=== PATIENT | female | born 1960 | race Caucasian/White ===

== ENCOUNTER 2016-08-08 15:13 | Emergency (ER) | payer OTHER ==
[2016-08-08] MEDS ORDERED: LORazepam 2 MG/ML MDV IM ONE (15:17)
[2016-08-08] MEDS ORDERED: LORazepam 2 MG/ML MDV ONE (15:18)
[2016-08-08] MEDS ORDERED: Midazolam 1 MG/ML 5 ML SDV ONE (15:41)
[2016-08-08] MEDS ORDERED: levETIRAcetam 2,000 MG in Sodium Chloride 0.9% 100 ML IV ONE ×2 (15:42→16:00)
[2016-08-08] MEDS ORDERED: Midazolam 1 MG/ML 5 ML SDV IVPUSH ONE (15:54)
[2016-08-08] MEDS ORDERED: LORazepam 2 MG/ML MDV IVPUSH ONE (15:55)
[2016-08-08 15:57] VITALS: BP 86/59
--- NOTE | 2016-08-08 16:00 | EDM.PDOC ---
ED HPI NEURO - General Chief Complaint: Neuro Symptoms/Deficits Stated Complaint: MEDICAL [facility] Time Seen by Provider: 08/08/16 15:30 Source: Reports: Patient, EMS, Family History Limitations: Reports: Altered mental status - History of Present Illness INITIAL COMMENTS - FREE TEXT/NARRATIVE: 55-year-old female was in her normal state of health 45 minutes ago when she suddenly slumped at the table and had difficulty communicating. She seemed to be frothing at the mouth but did not show seizure activity. There was no complete loss of consciousness. EMS was called and arrived very rapidly, they found the patient on the floor and unable to move her left side. She was speaking and was understandable, she seemed to have some left-sided facial drooping. Her vitals were stable. She was not febrile, her O2 saturations were in the 90s. She was in a sinus tachycardia. Rapid transfer to the emergency room was initiated. She showed no tendency towards inattention to one side or the other, before her symptoms worsen she commented to her family that her left arm was tingling or numb. Location (Neuro Complaint): Reports: face, upper extremity, left, lower extremity, left Quality (Neuro Complaint): Reports: tingling, weakness Severity: moderate - Related Data Allergies/ADRs: Allergies Allergy/AdvReac Type Severity Reaction Status Date / Time No Known Allergies Allergy Verified 08/08/16 15:36 Home Meds: Home Meds DULoxetine [Cymbalta] 1 tab PO DAILY 08/08/16 [History] DULoxetine [Cymbalta] 1 tab PO DAILY 08/08/16 [History] Naltrexone 0.25 tab PO DAILY 08/08/16 [History] Nitrofurantoin Monohyd/M-Cryst [Macrobid 100 mg Capsule] 1 tab PO BID 08/08/16 [ History] RABEprazole Sodium [Aciphex] 1 tab PO DAILY 08/08/16 [History] buPROPion [Wellbutrin] 1 tab PO BID 08/08/16 [History] Past Medical History Cardiovascular History: Reports: High cholesterol Gastrointestinal History: Reports: Chronic diarrhea Genitourinary History: Reports: Urinary incontinence 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 eye surgery as a child GI Surgical History: Reports: Cholecystectomy Female Surgical History: Reports: Hysterectomy ED ROS GENERAL - Review of Systems Review Of Systems: Unable To Obtain ED EXAM, NEURO - Physical Exam Exam: See Below Exam Limited By: Physical impairment General Appearance: alert, anxious, other (Patient was anxious and somewhat agitated and uncooperative, obviously not moving her left side) Eye Exam: bilateral eye: EOMI (Interestingly she tracked well both to the left and right, no disconjugate gaze) Respiratory/Chest: no respiratory distress, lungs clear Cardiovascular: regular rate, rhythm, tachycardia. No: extra beats GI/Abdominal: soft Neurological: no response to pain (On the left arm or leg), other (She had no active response on the left arm or leg to either tactile stimulation or verbal request. At times with agitation she seemed to have some nonpurposeful movement of the arm and leg) Psychiatric: anxious Skin Exam: Warm, Dry Course - Vital Signs Last Recorded V/S: Last Vital Signs Temp 94.3 F L 08/08/16 15:30 Pulse 109 H 08/08/16 15:44 Resp 22 H 08/08/16 15:44 BP 86/59 L 08/08/16 15:44 Pulse Ox 96 08/08/16 15:44 - Orders/Labs/Meds Orders: Active Orders 24 hr Category Date Time Status Head wo Cont [CT] Stat Exams 08/08/16 15:14 Taken Labs: Laboratory Tests 08/08/16 08/08/16 08/08/16 Range/Units 15:31 15:31 15:31 WBC 18.6 H (4.5-11.0) K/uL RBC 4.59 (3.30-5.50) M/uL Hgb 14.4 (12.0-15.0) g/dL Hct 43.8 (36.0-48.0) % MCV 95 (80-98) fL MCH 31 (27-31) pg MCHC 33 (32-36) % Plt Count 341 (150-400) K/uL Neut % (Auto) 59 (36-66) % Lymph % (Auto) 36 (24-44) % [place] % (Auto) 4 (2-6) % Eos % (Auto) 1 L (2-4) % Baso % (Auto) 0 (0-1) % PT 10.5 (9.5-12.0) sec INR 0.99 (0.80-1.20) Sodium 140 (140-148) mmol/L Potassium 4.4 (3.6-5.2) mmol/L Chloride 102 (100-108) mmol/L Carbon Dioxide 8 L (21-32) mmol/L Anion Gap 34.4 H (5.0-14.0) mmol/L BUN 8 (7-18) mg/dL Creatinine 1.5 H (0.6-1.0) mg/dL Est Cr Clr Drug Dosing 38.13 mL/min Estimated GFR (MDRD) 36 L (>60) Glucose 243 H (74-106) mg/dL Calcium 8.6 (8.5-10.1) mg/dL Total Bilirubin 0.4 (0.2-1.0) mg/dL AST 38 H (15-37) U/L ALT 43 (12-78) U/L Alkaline Phosphatase 117 H (46-116) U/L Total Protein 7.8 (6.4-8.2) g/dL Albumin 3.7 (3.4-5.0) g/dL Globulin 4.1 H (2.3-3.5) g/dL Albumin/Globulin Ratio 0.9 L (1.2-2.2) Meds: Medications Discontinued Medications Generic Name Dose Route Start Last Admin Trade Name Nathanielq PRN Reason Stop Dose Admin Levetiracetam 2,000 mg/ Sodium 120 mls @ 400 mls/hr 08/08/16 16:00 08/08/16 15:54 Chloride IV 08/08/16 16:17 400 mls/hr ONETIME ONE Administration Lorazepam Confirm 08/08/16 15:18 08/08/16 15:59 Ativan Administered 08/08/16 15:19 Not Given Dose 2 mg .ROUTE .STK-MED ONE Lorazepam 1 mg 08/08/16 15:55 08/08/16 15:20 Ativan IVPUSH 08/08/16 15:56 1 mg ONETIME ONE Administration Midazolam HCl Confirm 08/08/16 15:41 08/08/16 15:59 Versed 1 Mg/Ml Administered 08/08/16 15:42 Not Given Dose 5 mg .ROUTE .STK-MED ONE Midazolam HCl 4 mg 08/08/16 15:54 08/08/16 15:40 Versed 1 Mg/Ml IVPUSH 08/08/16 15:55 4 mg ONETIME ONE Administration - Re-Assessments/Exams Free Text/Narrative Re-Assessment/Exam: 08/08/16 16:[address] without contrast was obtained which revealed a fairly large space-occupying lesion of the right parietal area, 4-5 cm. Acuity was unknown, no significant edema was present and no hemorrhage seen. Consultation was made with neurology in [place] and the patient was given 2000 mg of Keppra IV to protect from seizure activity and there is a possibility that a seizure was what initiated her symptoms. She was also given 4 mg of Versed IV for her anxiety and agitation. Patient calmed down nicely prior to transport, she was airlifted to [facility], Dr. Melissa accepted. Departure - Departure Time of Disposition: 16:28 Disposition: DC/Tfer to Other 70 Condition: fair Clinical Impression: Cerebral mass Cerebrovascular accident (CVA) Qualifiers: CVA mechanism: unspecified Qualified Code(s): I63.9 - Cerebral infarction, unspecified Referrals: Claudia March PA [Primary Care Provider] - Forms: ED Department Discharge Care Plan Goals: Patient was urgently transported by air to [facility] for further neurologic evaluation. - My Orders Last 24 Hours: My Active Orders 08/08/16 15:14 Head wo Cont [CT] Stat - Assessment/Plan Last 24 Hours: My Active Orders 08/08/16 15:14 Head wo Cont [CT] Stat
== END 2016-08-08 16:05 | disposition other institution (70) ==
LOC: JP.ED 15:13
DX: I63.9 Cerebral infarction, unspecified (principal); G93.9 Disorder of brain, unspecified; E78.00 Pure hypercholesterolemia, unspecified; F41.9 Anxiety disorder, unspecified; F32.9 Major depressive disorder, single episode, unspecified; Z90.49 Acquired absence of other specified parts of digestive tract; Z90.710 Acquired absence of both cervix and uterus
CPT/HCPCS: 36415; 70450; 80053; 85025; 85610; 96374; 96375; 99285; J1953; J2060; J2250; J7030

== ENCOUNTER 2016-08-22 00:12 | Emergency (ER) | payer OTHER ==
[2016-08-22] MEDS ORDERED: Sodium Chloride 0.9% 10 ML Syringe FLUSH PRN (01:01)
[2016-08-22] MEDS ORDERED: fentaNYL 100 MCG/2 ML SDV IVPUSH ONE ×2 (01:17→02:13)
--- NOTE | 2016-08-22 01:24 | EDM.PDOC ---
ED HPI Trauma - General Chief Complaint: Lower Extremity Injury/Pain Stated Complaint: LOWER LEFT LEG PAIN Time Seen by Provider: 08/22/16 00:53 Source: Reports: Patient, Old records, RN notes reviewed, Other (Friend, who has power of civil rights attorney when patient is incapacitated) History Limitations: Reports: No limitations - History of Present Illness INITIAL COMMENTS - FREE TEXT/NARRATIVE: Tried in by friend Chief complaint Left leg pain HPI 55-year-old female was discharged from [place] this afternoon, had been home barely 2 hours when she had sudden onset of pain in the left lower leg, particularly in the area of the xiao but also involving the thigh and calf. He felt like she had a can the bones it hurts to stand and walk and her to palpate her push on the area. A little better at rest. No history of injury No history of similar pain. August 08 she presented to emergency room with sudden onset of syncopal episode at home associated with some abnormal movements. In addition there was altered mental behavior. Arrived in ED by ambulance. Evaluation included a CT of her head which showed a right-sided parietal fortify centimeters in diameter and around. She is treated with intravenous Keppra for possible seizure and transferred to [place] by air. At [place] she was restless and agitated and in particular she kept pulling off her oxygen and consequently ended up getting intubated and sedated. Which ICU she was intubated sedated and remained that way until discharge. As part of her evaluation she underwent ultrasound of her heart which showed significant decrease in ejection fraction. Apparently she underwent angiogram, uncertain which side was used for access, but no significant blockages were found. The external defibrillator was placed on her but she still has. In discussion with the neurosurgeon, because of the heart wrist, it was felt that she was too high risk for cerebral biopsy at this point. MRI did not reveal the exact nature of the lesion although there was evidence of small ischemic strokes, initially just the right side but some spots also showed on the left side subsequent MRI. Biopsy of the cerebral masses deferred until her cardiac function improves No further seizure-like activity has been observed Allergies/ADRs: Allergies No Known Allergies Allergy (Verified 08/08/16 15:36) Home Medications: Ambulatory Orders DULoxetine [Cymbalta] 1 tab PO DAILY 08/08/16 [Confirmed 08/22/16] DULoxetine [Cymbalta] 1 tab PO DAILY 08/08/16 [Confirmed 08/22/16] RABEprazole Sodium [Aciphex] 1 tab PO DAILY 08/08/16 [Confirmed 08/22/16] buPROPion [Wellbutrin] 1 tab PO BID 08/08/16 [Confirmed 08/22/16] Aspirin 81 mg PO DAILY 08/22/16 [Confirmed 08/22/16] Carvedilol 3.125 mg PO BID 08/22/16 [Confirmed 08/22/16] Cyanocobalamin (Vitamin B-12) [B-12] 1,000 mcg PO DAILY 08/22/16 [Confirmed ] Furosemide 40 mg PO BID 08/22/16 [Confirmed 08/22/16] Magnesium Oxide [Magnesium] 400 mg PO DAILY 08/22/16 [Confirmed 08/22/16] Montelukast [Singulair] 10 mg PO BEDTIME 08/22/16 [Confirmed 08/22/16] Multivitamin [Multivitamins] 1 tab PO DAILY 08/22/16 [Confirmed 08/22/16] Potassium 20 meq PO DAILY 08/22/16 [Confirmed 08/22/16] Vitamin B Complex [B Complex] 1 tab PO DAILY 08/22/16 [Confirmed 08/22/16] atorvaSTATin [Lipitor] 40 mg PO DAILY 08/22/16 [Confirmed 08/22/16] levETIRAcetam [Keppra] 500 mg PO BID 08/22/16 [Confirmed 08/22/16] Past Medical History Cardiovascular History: Reports: High cholesterol Gastrointestinal History: Reports: Chronic diarrhea Genitourinary History: Reports: Urinary incontinence 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 eye surgery as a child Cardiovascular Surgical History: Reports: Other (see below) Other Cardiovascular Surgeries/Procedures: cardiac life vestand echo memory were placed 08-21-16 GI Surgical History: Reports: Cholecystectomy Female Surgical History: Reports: Hysterectomy Social & Family History - Tobacco Use Smoking Status *Q: Former Smoker - Caffeine Use Caffeine Use: Reports: Coffee - Recreational Drug Use Recreational Drug Use: No Review of Systems - Review of Systems Review Of Systems: See Below Constitutional: Denies: chills, diaphoresis, fever Eyes: Reports: no symptoms Ears: Reports: no symptoms Nose: Reports: no symptoms Mouth/Throat: Reports: no symptoms Respiratory: Reports: No Symptoms Cardiovascular: Reports: no symptoms GI/Abdominal: Reports: No symptoms Genitourinary: Reports: no symptoms Musculoskeletal: Reports: leg pain Skin: Reports: no symptoms Trauma Exam - Physical Exam Exam: See Below Exam Limited By: No limitations General Appearance: Reports: alert, anxious, moderate distress (And restlessness ), other (Mild tachycardia rate 113 otherwise vital signs normal, color normal, appears healthy) Head: Reports: atraumatic, normocephalic Eyes: bilateral eye: conjunctival injection Ears: Reports: normal external exam, hearing grossly normal Nose: Reports: normal inspection, normal mucousa Throat/Mouth: Reports: Normal inspection, Normal voice Neck: Reports: non-tender, full range of motion, normal inspection Respiratory Exam: Reports: no respiratory distress, lungs clear, normal breath sounds, no accessory muscle use, chest non-tender Cardiovascular: Reports: normal peripheral pulses, regular rate, rhythm, no edema, no murmur GI/Abdominal: Reports: normal bowel sounds, soft, non tender, no organomegaly, no distention, no abnormal bruit, no mass Back: Reports: normal inspection, non-tender Extremities: Reports: no evidence of injury, other (Mottled and bluish discoloration of the whole of the left lower extremity, but pulses are equal both legs, capillary refill normal, no joint swelling or effusion evident; normal temperature both legs) Neurologic: Reports: no motor/sensory deficits, normal mood/affect Skin: Reports: Mottled (Left leg otherwise body entirely normal) - Samuel Coma Score Best Eye Response (Samuel): (4) open spontaneously Best Verbal Response (Samuel): (5) oriented Best Motor Response ([place]): (6) obeys commands Course - Vital Signs Last Recorded V/S: Last Vital Signs Temp 36.6 C 08/22/16 03:04 Pulse 94 08/22/16 03:04 Resp 16 08/22/16 03:04 BP 96/54 L 08/22/16 03:04 Pulse Ox 97 08/22/16 03:04 - Orders/Labs/Meds Orders: Active Orders 24 hr Category Date Time Status VL Duplex Lwr Ext Veins Ltd Lt [US] Stat Exams 08/22/16 01:01 Taken Heparin Sodium/D5W [Heparin 25,000 Units in D5W 500 ML] Med 08/22/16 02:45 Active 25,000 units in 500 ml IV TITRATE Sodium Chloride 0.9% [Saline Flush] Med 08/22/16 01:01 Active 10 ml FLUSH ASDIRECTED PRN Saline Lock Insert [OM.PC] Stat Oth 08/22/16 01:01 Ordered Medication Orders Heparin Sodium/Dextrose (Heparin 25,000 Units In D5w 500 Ml) 25,000 units in 500 mls @ 30.456 mls/hr IV TITRATE ELLA PRN Reason: 18 UNITS/KG/HR Last Admin: 08/22/16 03:01 Dose: 18 units/kg/hr, 30.456 mls/hr Sodium Chloride (Saline Flush) 10 ml FLUSH ASDIRECTED PRN PRN Reason: Keep Vein Open Last Admin: 08/22/16 01:22 Dose: 10 ml Labs: Laboratory Tests 08/22/16 08/22/16 08/22/16 Range/Units 01:01 01:01 01:01 WBC 15.8 H (4.5-11.0) K/uL RBC 3.76 (3.30-5.50) M/uL Hgb 11.6 L D (12.0-15.0) g/dL Hct 35.0 L (36.0-48.0) % MCV 93 (80-98) fL MCH 31 (27-31) pg MCHC 33 (32-36) % Plt Count 399 (150-400) K/uL PT 11.6 (9.5-12.0) sec INR 1.09 (0.80-1.20) Sodium 139 L (140-148) mmol/L Potassium 4.0 (3.6-5.2) mmol/L Chloride 101 (100-108) mmol/L Carbon Dioxide 24 D (21-32) mmol/L Anion Gap 18.0 H (5.0-14.0) mmol/L BUN 8 (7-18) mg/dL Creatinine 0.9 (0.6-1.0) mg/dL Est Cr Clr Drug Dosing 63.55 mL/min Estimated GFR (MDRD) > 60 (>60) Glucose 122 H (74-106) mg/dL Calcium 8.9 (8.5-10.1) mg/dL Meds: Medications Generic Name Dose Route Start Last Admin Trade Name Freq PRN Reason Stop Dose Admin Heparin Sodium/Dextrose 25,000 units in 500 mls @ 30.456 mls/hr 08/22/16 02: 45 08/22/16 03:01 Heparin 25,000 Units In D5w 500 Ml IV 18 units/kg/hr TITRATE ELLA 30.456 mls/hr 18 UNITS/KG/HR Administration Sodium Chloride 10 ml 08/22/16 01:01 08/22/16 01:22 Saline Flush FLUSH 10 ml ASDIRECTED PRN Administration Keep Vein Open Discontinued Medications Generic Name Dose Route Start Last Admin Trade Name Freq PRN Reason Stop Dose Admin Fentanyl 50 mcg 08/22/16 01:17 08/22/16 01:22 Sublimaze IVPUSH 08/22/16 01:18 50 mcg ONETIME ONE Administration Fentanyl 100 mcg 08/22/16 02:13 08/22/16 02:21 Sublimaze IVPUSH 08/22/16 02:14 100 mcg ONETIME ONE Administration Heparin Sodium (Porcine) 5,000 units 08/22/16 02:27 08/22/16 02:57 Heparin Sodium IVPUSH 08/22/16 02:28 5,000 units ONETIME ONE Administration - Re-Assessments/Exams Free Text/Narrative Re-Assessment/Exam: 08/22/16 01:27 55-year-old female with recent angiogram ischemic stroke, right parietal mass and possible arrhythmia Presents with new onset left calf and leg pain. Altered appearance to the left leg Does not appear to be an arterial problem Fentanyl 50 mcg IV for pain Doppler left lower extremity 08/22/16 01:45 08/22/16 02:34 Doppler ultrasound shows extensive DVT left leg from the popliteal fossa up to the femoral to the junction with the greater saphenous Fentanyl 100 mcg IV given with good relief of pain Heparin if indicated, and symptoms suggestive of pulmonary embolus at this point However with and brain mass, there is risk of bleeding. I discussed with hospitalist tooth cutter pinion at [facility], do not have it, recommended shared decision-making the patient. Discussed with hospitalist provider here, however felt that she might need ICU or perhaps referral to a center where vascular surgery is available. Heparin will be bolused with 5000 units followed by units per hour, intravenously 08/22/16 03:22 Noe in [place] is on divert [place] Joni has vascular surgery but recommend lysis prior to thrombectomy , and the hospitalists overwhelmed at present time and cannot accept admission currently Dr. June at [facility] is graciously accepted the patient in transfer Departure - Departure Time of Disposition: 03:21 Disposition: DC/Tfer to Acute Hospital 02 Condition: fair Clinical Impression: Brain mass, Seizure disorder Deep vein thrombosis (DVT) of proximal vein of left lower extremity Qualifiers: Chronicity: acute Qualified Code(s): I82.4Y2 - Acute embolism and thrombosis of unspecified deep veins of left proximal lower extremity Cardiomyopathy Qualifiers: Cardiomyopathy type: unspecified Qualified Code(s): I42.9 - Cardiomyopathy, unspecified - My Orders Last 24 Hours: My Active Orders 08/22/16 01:01 VL Duplex Lwr Ext Veins Ltd Lt [US] Stat Sodium Chloride 0.9% [Saline Flush] 10 ml FLUSH ASDIRECTED PRN Saline Lock Insert [OM.PC] Stat 08/22/16 02:45 Heparin Sodium/D5W [Heparin 25,000 Units in D5W 500 ML] 25,000 units in 500 ml IV TITRATE - Assessment/Plan Last 24 Hours: My Active Orders 08/22/16 01:01 VL Duplex Lwr Ext Veins Ltd Lt [US] Stat Sodium Chloride 0.9% [Saline Flush] 10 ml FLUSH ASDIRECTED PRN Saline Lock Insert [OM.PC] Stat 08/22/16 02:45 Heparin Sodium/D5W [Heparin 25,000 Units in D5W 500 ML] 25,000 units in 500 ml IV TITRATE
[2016-08-22] MEDS ORDERED: Heparin Sodium 5,000 Units/ML Vial IVPUSH ONE (02:27)
[2016-08-22] MEDS ORDERED: Heparin Sodium/D5W 25,000 UNITS/500 ML BAG IV SCH (02:45)
[2016-08-22 03:29] VITALS: BP 91/57
== END 2016-08-22 04:20 ==
LOC: JP.ED 00:12
DX: I82.4Y2 Acute embolism and thrombosis of unspecified deep veins of left proximal lower extremity (principal); G93.9 Disorder of brain, unspecified; G40.909 Epilepsy, unspecified, not intractable, without status epilepticus; E78.00 Pure hypercholesterolemia, unspecified; K52.9 Noninfective gastroenteritis and colitis, unspecified; R32 Unspecified urinary incontinence; M81.0 Age-related osteoporosis without current pathological fracture; M85.80 Other specified disorders of bone density and structure, unspecified site; F32.9 Major depressive disorder, single episode, unspecified; F41.9 Anxiety disorder, unspecified; F44.81 Dissociative identity disorder; Z87.891 Personal history of nicotine dependence
CPT/HCPCS: 36415; 80048; 85027; 85610; 93971; J1644; J3010; J7050; 96374; 96375; 96376; 99285-25

== ENCOUNTER 2016-09-01 10:10 | Emergency (ER) | payer OTHER ==
[2016-09-01 10:32] VITALS: BP 113/68
--- NOTE | 2016-09-01 11:13 | EDM.PDOC ---
ED HPI RENAL/ - General Chief Complaint: Genitourinary Problem Stated Complaint: UTI?? Time Seen by Provider: 09/01/16 11:08 Source: Reports: Patient History Limitations: Reports: No limitations - History of Present Illness INITIAL COMMENTS - FREE TEXT/NARRATIVE: Pt arrives with urinary frequency and burning which started in the last 2 days. Timing/Duration: Reports: Day(s):, Getting worse Location: Reports: other ( urinary frquency and burning. ) Worsens with: Reports: urinating Associated Symptoms: Reports: burning, dysuria, frequency, diarrhea - Related Data Allergies/ADRs: Allergies Allergy/AdvReac Type Severity Reaction Status Date / Time No Known Allergies Allergy Verified 09/01/16 10:32 Home Meds: Home Meds DULoxetine [Cymbalta] 1 tab PO DAILY 08/08/16 [History] RABEprazole Sodium [Aciphex] 1 tab PO DAILY 08/08/16 [History] buPROPion [Wellbutrin] 1 tab PO BID 08/08/16 [History] Aspirin 81 mg PO DAILY 08/22/16 [History] Carvedilol 3.125 mg PO BID 08/22/16 [History] Cyanocobalamin (Vitamin B-12) [B-12] 1,000 mcg PO DAILY 08/22/16 [History] Furosemide 40 mg PO BID 08/22/16 [History] Magnesium Oxide [Magnesium] 400 mg PO DAILY 08/22/16 [History] Montelukast [Singulair] 10 mg PO BEDTIME 08/22/16 [History] Multivitamin [Multivitamins] 1 tab PO DAILY 08/22/16 [History] Potassium 20 meq PO DAILY 08/22/16 [History] Vitamin B Complex [B Complex] 1 tab PO DAILY 08/22/16 [History] atorvaSTATin [Lipitor] 40 mg PO DAILY 08/22/16 [History] levETIRAcetam [Keppra] 500 mg PO BID 08/22/16 [History] Past Medical History Cardiovascular History: Reports: High cholesterol Gastrointestinal History: Reports: Chronic diarrhea Genitourinary History: Reports: Urinary incontinence, UTI, 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 eye surgery as a child Cardiovascular Surgical History: Reports: Other (see below) Other Cardiovascular Surgeries/Procedures: cardiac life vestand echo memory were placed 08-21-16 GI Surgical History: Reports: Cholecystectomy Female Surgical History: Reports: Hysterectomy Social & Family History - Tobacco Use Smoking Status *Q: Former Smoker Years of Tobacco use: 30 Packs/Tins Daily: 0.5 Used Tobacco, but Quit: Yes Month Tobacco Last Used: July Second Hand Smoke Exposure: No - Caffeine Use Caffeine Use: Reports: Coffee, Soda - Alcohol Use Days Per Week of Alcohol Use: 0 - Recreational Drug Use Recreational Drug Use: Yes Recreational Drug Type: Reports: Marijuana/Hashish Recreational Drug Use Frequency: Daily ED ROS GENERAL - Review of Systems Review Of Systems: See Below Constitutional: Reports: no symptoms HEENT: Reports: No symptoms Respiratory: Reports: No Symptoms Cardiovascular: Reports: No symptoms Endocrine: Reports: no symptoms GI/Abdominal: Reports: Other ( Pt has chronic diarrhea. ) : Reports: dysuria, frequency Musculoskeletal: Reports: no symptoms Skin: Reports: no symptoms ED EXAM, RENAL/ - Physical Exam Exam: See Below Text/Narrative:: Pt has a history of a brain Mass ad she is beiong followed at [place]. She will probably have surgery in the 10 days. She not has urinary burning and frequency. She also has a rash on her romi area. Exam Limited By: No limitations General Appearance: alert, anxious Ears: normal TMs Nose: normal inspection Throat/Mouth: Normal inspection Head: atraumatic Neck: normal inspection Respiratory/Chest: no respiratory distress Cardiovascular: regular rate, rhythm GI/Abdominal: soft, non tender (Female) Exam: Other (pt has a rash on the romi area which looks like a yeast rash. ) Rectal (Female) Exam: Deferred Back Exam: normal inspection Extremities: normal inspection Course - Vital Signs Last Recorded V/S: Last Vital Signs Temp 34.6 C L 09/01/16 10:58 Pulse 96 09/01/16 10:58 Resp 16 09/01/16 10:58 BP 113/68 09/01/16 10:58 Pulse Ox 98 09/01/16 10:58 - Orders/Labs/Meds Orders: Active Orders 24 hr Category Date Time Status CULTURE URINE [RM] Stat Lab 09/01/16 10:53 Uncollected Labs: Laboratory Tests 09/01/16 Range/Units 10:46 Urine Color Yellow Urine Appearance Cloudy Urine pH 5.0 (4.5-8.0) Ur Specific [place] 1.025 (1.008-1.030) Urine Protein 100 H (NEGATIVE) mg/dL Urine Glucose (UA) Normal (NEGATIVE) mg/dL Urine Ketones Negative (NEGATIVE) mg/dL Urine Occult Blood Moderate (NEGATIVE) Urine Nitrite Negative (NEGATIVE) Urine Bilirubin Small (NEGATIVE) Urine Urobilinogen >=12 H (NORMAL) mg/dL Ur Leukocyte Esterase Large (NEGATIVE) Urine RBC 0-5 (0-5) Urine WBC 20-30 H (0-5) Ur Epithelial Cells Few Urine Bacteria Few Urine Mucus Not seen Urine Other See note Departure - Departure Time of Disposition: 11:13 Disposition: Home, Self-Care 01 Condition: fair Clinical Impression: UTI (urinary tract infection) Referrals: Claudia March PA [Primary Care Provider] - Forms: ED Department Discharge Care Plan Goals: push fluids, myclog cream to the romi area, cipro 500mg bid. - My Orders Last 24 Hours: My Active Orders 09/01/16 10:53 CULTURE URINE [RM] Stat - Assessment/Plan Last 24 Hours: My Active Orders 09/01/16 10:53 CULTURE URINE [RM] Stat
== END 2016-09-01 11:24 | disposition home or self-care (01) ==
LOC: JP.ED 10:10
DX: N39.0 Urinary tract infection, site not specified (principal); E78.00 Pure hypercholesterolemia, unspecified; F41.9 Anxiety disorder, unspecified; F32.9 Major depressive disorder, single episode, unspecified; Z79.899 Other long term (current) drug therapy; Z90.49 Acquired absence of other specified parts of digestive tract; Z90.710 Acquired absence of both cervix and uterus; Z87.891 Personal history of nicotine dependence
CPT/HCPCS: 81001; 87086; 99284

== ENCOUNTER 2016-10-29 15:45 | Emergency (ER) | payer OTHER ==
[2016-10-29 15:58] VITALS: BP 123/77
--- NOTE | 2016-10-29 17:06 | EDM.PDOC ---
[id number]: [facility] CALLED FOR INSTRUCTIONS Time Seen by Provider: 10/29/16 16:30 Source of Information: Reports: Patient, Family History Limitations: Reports: No Limitations - History of Present Illness INITIAL COMMENTS - FREE TEXT/NARRATIVE: 56-year-old female who was recently diagnosed with a glioblastoma and had cranial surgery who has been struggling with low platelets. She has fallen several times hitting her head over the past several weeks, and when she talked to her providers at [facility] today they were concerned with her low platelet count, recent surgery and active intracranial disease a head CT should be done to rule out any subtle hemorrhage. The patient herself feels baseline, very talkative, continues to have left-sided numbness but no increased weakness or a aphasia or dysarthria. No significant visual change. Her platelet count this morning was 16,000, if her CT shows no acute findings they will set her up for a platelet transfusion tomorrow. Quality: Reports: Dull (Dull intermittent headache) Severity: Mild Associated Symptoms: Denies: Fever/Chills, Nausea/Vomiting, Shortness of Breath Headache Pain Score (Numeric/FACES): 8 - Related Data Allergies Allergy/AdvReac Type Severity Reaction Status Date / Time No Known Allergies Allergy Verified 09/01/16 10:32 Home Meds: Home Meds DULoxetine [Cymbalta] 1 tab PO DAILY 08/08/16 [History] RABEprazole Sodium [Aciphex] 1 tab PO DAILY 08/08/16 [History] buPROPion [Wellbutrin] 1 tab PO BID 08/08/16 [History] Aspirin 81 mg PO DAILY 08/22/16 [History] Carvedilol 3.125 mg PO BID 08/22/16 [History] Cyanocobalamin (Vitamin B-12) [B-12] 1,000 mcg PO DAILY 08/22/16 [History] Furosemide 40 mg PO BID 08/22/16 [History] Magnesium Oxide [Magnesium] 400 mg PO DAILY 08/22/16 [History] Montelukast [Singulair] 10 mg PO BEDTIME 08/22/16 [History] Multivitamin [Multivitamins] 1 tab PO DAILY 08/22/16 [History] Potassium 20 meq PO DAILY 08/22/16 [History] Vitamin B Complex [B Complex] 1 tab PO DAILY 08/22/16 [History] atorvaSTATin [Lipitor] 40 mg PO DAILY 08/22/16 [History] levETIRAcetam [Keppra] 500 mg PO BID 08/22/16 [History] DULoxetine [Cymbalta] 30 mg PO DAILY 10/29/16 [History] Diphenoxylate HCl/Atropine [Lomotil] 1 tab PO QID PRN 10/29/16 [History] diphenhydrAMINE [Benadryl] 50 mg PO ASDIRECTED 10/29/16 [History] Past Medical History HEENT History: Reports: Sinusitis Cardiovascular History: Reports: Blood Clots/VTE/DVT, High Cholesterol Respiratory History: Reports: Other (See Below) Other Respiratory History: SIRS Gastrointestinal History: Reports: Chronic Diarrhea, GERD, Other (See Below) Other Gastrointestinal History: lymphocytic colitis Genitourinary History: Reports: Urinary Incontinence, UTI, Recurrent [employer]IST History: Reports: , Other (See Below) Other OB/BYN History: chronic dysplagia Musculoskeletal History: Reports: Fibromyalgia, Osteoporosis, Other (See Below) Other Musculoskeletal History: right hip dislocation Neurological History: Reports: CVA, Headaches, Chronic, Migraines, Neuropathy, Peripheral, Seizure, Other (See Below) Other Neuro History: gliomas Psychiatric History: Reports: Anxiety, Depression, Psych Hospitalization(s), PTSD, Suicide Attempt Other Psychiatric History: multiple personality disorder Hematologic History: Reports: Blood Transfusion(s), Other (See Below) Other Hematologic History: platelet transfusion Immunologic History: Reports: Immunosuppression Oncologic (Cancer) History: Reports: Other (See Below) Other Oncologic History: glioblastoma Dermatologic History: Reports: Other (See Below) Other Dermatologic History: chronic puritis - Infectious Disease History Infectious Disease History: Reports: Chicken Pox, Mumps - Past Surgical History HEENT Surgical History: Reports: Other (See Below) Other HEENT Surgeries/Procedures: cyst removal on neck, hyoid bone removal, amblyopia Cardiovascular Surgical History: Reports: Other (See Below) Other Cardiovascular Surgeries/Procedures: loop monitor implant GI Surgical History: Reports: Cholecystectomy Female Surgical History: Reports: Hysterectomy Neurological Surgical History: Reports: Other (See Below) Other Neurological Surgeries/Procedures: craniotomy Musculoskeletal Surgical History: Reports: Other (See Below) Other Musculoskeletal Surgeries/Procedures:: crainiotomy Social & Family History - Tobacco Use Smoking Status *Q: Current Every Day Smoker Years of Tobacco use: 30 Packs/Tins Daily: 0.3 Used Tobacco, but Quit: Yes Month Tobacco Last Used: July Second Hand Smoke Exposure: No - Caffeine Use Caffeine Use: Reports: Coffee - Alcohol Use Days Per Week of Alcohol Use: 0 - Recreational Drug Use Recreational Drug Use: No Recreational Drug Type: Reports: Marijuana/Hashish Recreational Drug Use Frequency: Daily ED ROS GENERAL - Review of Systems Review Of Systems: See Below Constitutional: Denies: Fever, Chills Respiratory: Denies: Shortness of Breath Cardiovascular: Denies: Chest Pain GI/Abdominal: Denies: Abdominal Pain, Nausea, Vomiting Neurological: Reports: Difficulty Walking, Other (Left-sided paresthesias, numbness, weakness) ED EXAM, GENERAL - Physical Exam Exam: See Below Exam Limited By: No Limitations General Appearance: Alert, No Apparent Distress Eye Exam: Bilateral Eye: EOMI Respiratory/Chest: No Respiratory Distress, Lungs Clear Neurological: Alert Skin Exam: Warm, Dry, Other (No widespread bruising seen) Course - Vital Signs Last Recorded V/S: Last Vital Signs Temp 96.3 F 10/29/16 16:14 Pulse 95 10/29/16 16:14 Resp 16 10/29/16 16:14 BP 123/77 10/29/16 16:14 Pulse Ox 97 10/29/16 16:14 - Orders/Labs/Meds Orders: Active Orders 24 hr Category Date Time Status Head wo Cont [CT] Stat Exams 10/29/16 16:54 Taken - Re-Assessments/Exams Free Text/Narrative Re-Assessment/Exam: 10/29/16 17:[address] without contrast was obtained. 10/29/16 17:47 CT scan showed no acute hemorrhagic changes. She does have increasing edema and mass effect, however when I discussed with the patient she said they "know that" and are watching it. Apparently it has doubled in size in the last 3 weeks. Her care providers at [facility] were informed of the findings and they will order the platelets for tomorrow. She will return anytime sooner if worsening or concerns. Departure - Departure Time of Disposition: 18:34 Disposition: Home, Self-Care 01 Condition: fair Clinical Impression: Brain mass, Glioblastoma of cerebellum - Discharge Information Instructions: Glioblastoma, How to Use a Wheelchair Referrals: Claudia March PA [Primary Care Provider] - Forms: ED Department Discharge Care Plan Goals: Return tomorrow for platelet infusion as ordered by your providers at [facility]. You can return anytime sooner if worsening or concerns. - My Orders Last 24 Hours: My Active Orders 10/29/16 16:54 Head wo Cont [CT] Stat - Assessment/Plan Last 24 Hours: My Active Orders 10/29/16 16:54 Head wo Cont [CT] Stat
== END 2016-10-29 18:09 | disposition home or self-care (01) ==
LOC: JP.ED 15:45
DX: G93.9 Disorder of brain, unspecified (principal); C71.6 Malignant neoplasm of cerebellum; E78.00 Pure hypercholesterolemia, unspecified; K21.9 Gastro-esophageal reflux disease without esophagitis; F41.9 Anxiety disorder, unspecified; F32.9 Major depressive disorder, single episode, unspecified; F17.210 Nicotine dependence, cigarettes, uncomplicated; Z79.82 Long term (current) use of aspirin; Z79.899 Other long term (current) drug therapy; Z86.718 Personal history of other venous thrombosis and embolism; Z86.73 Personal history of transient ischemic attack (TIA), and cerebral infarction without residual deficits; Z90.49 Acquired absence of other specified parts of digestive tract; Z90.710 Acquired absence of both cervix and uterus; Z98.890 Other specified postprocedural states
CPT/HCPCS: 70450; 99284-25

== ENCOUNTER 2016-11-06 11:27 | Emergency (ER) | payer OTHER ==
[2016-11-06 11:41] VITALS: BP 106/76
--- NOTE | 2016-11-06 11:57 | EDM.PDOC ---
ED HPI GENERAL MEDICAL PROBLEM - General Chief Complaint: Lower Extremity Injury/Pain Stated Complaint: ISSUES W/LT LEG/BLOOD CLOTS? Time Seen by Provider: 11/06/16 11:45 Source of Information: Reports: Patient, Family, Old Records History Limitations: Reports: No Limitations - History of Present Illness INITIAL COMMENTS - FREE TEXT/NARRATIVE: 56 yo female was scheduled to come in for an outpatient infusion of platelets today. [place] a lump at the back of her left calf and was concerned this may be a DVT so came to the ER to be checked out. No SOB or pleuritic chest pain. 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: Other (see below) (none) - Related Data Allergies Allergy/AdvReac Type Severity Reaction Status Date / Time morphine Allergy Rash Verified 10/31/16 14:22 Home Meds: Home Meds DULoxetine [Cymbalta] 1 tab PO DAILY 08/08/16 [History] RABEprazole Sodium [Aciphex] 1 tab PO DAILY 08/08/16 [History] buPROPion [Wellbutrin] 1 tab PO BID 08/08/16 [History] Aspirin 81 mg PO DAILY 08/22/16 [History] Carvedilol 3.125 mg PO BID 08/22/16 [History] Cyanocobalamin (Vitamin B-12) [B-12] 1,000 mcg PO DAILY 08/22/16 [History] Montelukast [Singulair] 10 mg PO BEDTIME 08/22/16 [History] Multivitamin [Multivitamins] 1 tab PO DAILY 08/22/16 [History] Potassium 20 meq PO DAILY 08/22/16 [History] Vitamin B Complex [B Complex] 1 tab PO DAILY 08/22/16 [History] atorvaSTATin [Lipitor] 40 mg PO DAILY 08/22/16 [History] levETIRAcetam [Keppra] 1,000 mg PO BID 08/22/16 [History] DULoxetine [Cymbalta] 30 mg PO DAILY 10/29/16 [History] diphenhydrAMINE [Benadryl] 50 mg PO ASDIRECTED 10/29/16 [History] Past Medical History HEENT History: Reports: Sinusitis Cardiovascular History: Reports: Blood Clots/VTE/DVT, High Cholesterol Respiratory History: Reports: Other (See Below) Other Respiratory History: SIRS Gastrointestinal History: Reports: Chronic Diarrhea, GERD, Other (See Below) Other Gastrointestinal History: lymphocytic colitis Genitourinary History: Reports: Urinary Incontinence, UTI, Recurrent [employer] History: Reports: , Other (See Below) Other OB/BYN History: chronic dysplagia Musculoskeletal History: Reports: Fibromyalgia, Osteoporosis, Other (See Below) Other Musculoskeletal History: right hip dislocation Neurological History: Reports: CVA, Headaches, Chronic, Migraines, Neuropathy, Peripheral, Seizure, Other (See Below) Other Neuro History: gliomas Psychiatric History: Reports: Anxiety, Depression, Psych Hospitalization(s), PTSD, Suicide Attempt Other Psychiatric History: multiple personality disorder Hematologic History: Reports: Blood Transfusion(s), Other (See Below) Other Hematologic History: platelet transfusion Immunologic History: Reports: Immunosuppression Oncologic (Cancer) History: Reports: Other (See Below) Other Oncologic History: glioblastoma Dermatologic History: Reports: Other (See Below) Other Dermatologic History: chronic puritis - Infectious Disease History Infectious Disease History: Reports: Chicken Pox, Mumps - Past Surgical History HEENT Surgical History: Reports: Other (See Below) Other HEENT Surgeries/Procedures: cyst removal on neck, hyoid bone removal, amblyopia Cardiovascular Surgical History: Reports: Other (See Below) Other Cardiovascular Surgeries/Procedures: loop monitor implant GI Surgical History: Reports: Cholecystectomy Female Surgical History: Reports: Hysterectomy Neurological Surgical History: Reports: Other (See Below) Other Neurological Surgeries/Procedures: craniotomy Musculoskeletal Surgical History: Reports: Other (See Below) Other Musculoskeletal Surgeries/Procedures:: crainiotomy Social & Family History - Tobacco Use Smoking Status *Q: Current Every Day Smoker Years of Tobacco use: 30 Packs/Tins Daily: 0.3 Used Tobacco, but Quit: Yes Month Tobacco Last Used: July Second Hand Smoke Exposure: No - Caffeine Use Caffeine Use: Reports: Coffee - Alcohol Use Days Per Week of Alcohol Use: 0 - Recreational Drug Use Recreational Drug Use: No Recreational Drug Type: Reports: Marijuana/Hashish Recreational Drug Use Frequency: Daily Review of Systems - Review of Systems Review Of Systems: See Below Constitutional: Reports: No Symptoms Respiratory: Reports: No Symptoms Cardiovascular: Reports: No Symptoms GI/Abdominal: Reports: No Symptoms Musculoskeletal: Reports: Other (mild L calf pain) Skin: Reports: No Symptoms Neurological: Reports: No Symptoms ED EXAM, GENERAL - Physical Exam Exam: See Below Exam Limited By: No Limitations General Appearance: Alert, WD/WN, No Apparent Distress Nose: Normal Inspection, Normal Mucosa, No Blood Head: Atraumatic, Normocephalic Respiratory/Chest: No Respiratory Distress, Lungs Clear, Normal Breath Sounds, No Accessory Muscle Use Cardiovascular: Regular Rate, Rhythm, No Edema GI/Abdominal: Normal Bowel Sounds, Soft, Non-Tender, No Distention Extremities: Normal Inspection, Normal Range of Motion, Non-Tender, No Pedal Edema, Other (palpable lumps to back of the L calf felt to represent clots in superficial veins, no erythema and minimal tenderness. ) Neurological: Alert, Oriented, CN II-XII Intact, Normal Cognition Psychiatric: Normal Affect, Normal Mood Lymphatic: No Adenopathy Course - Vital Signs Last Recorded V/S: Last Vital Signs Temp 35.7 C 11/06/16 11:40 Pulse 91 11/06/16 11:40 Resp 18 11/06/16 11:40 BP 106/76 11/06/16 11:40 Pulse Ox 95 11/06/16 11:40 Departure - Departure Time of Disposition: 11:57 Disposition: Home, Self-Care 01 Condition: good Clinical Impression: Superficial thrombophlebitis of left leg - Discharge Information Referrals: Claudia March PA [Primary Care Provider] - Forms: ED Department Discharge Additional Instructions: Apply warm, moist compresses to the areas on the back of your left calf. Recheck with your provider as needed.
== END 2016-11-06 12:01 | disposition home or self-care (01) ==
LOC: JP.ED 11:27
DX: I80.02 Phlebitis and thrombophlebitis of superficial vessels of left lower extremity (principal); F17.210 Nicotine dependence, cigarettes, uncomplicated; E78.00 Pure hypercholesterolemia, unspecified; K21.9 Gastro-esophageal reflux disease without esophagitis; F32.9 Major depressive disorder, single episode, unspecified; F41.9 Anxiety disorder, unspecified; G43.909 Migraine, unspecified, not intractable, without status migrainosus; F43.10 Post-traumatic stress disorder, unspecified; Z90.710 Acquired absence of both cervix and uterus; Z79.899 Other long term (current) drug therapy; Z88.5 Allergy status to narcotic agent; Z90.49 Acquired absence of other specified parts of digestive tract; Z79.82 Long term (current) use of aspirin; Z86.73 Personal history of transient ischemic attack (TIA), and cerebral infarction without residual deficits
CPT/HCPCS: 99283

== ENCOUNTER 2016-11-08 09:25 | Inpatient (IN) | payer OTHER ==
[2016-11-08] MEDS ORDERED: Sodium Chloride 0.9% 1,000 ML IV SCH (10:15)
--- NOTE | 2016-11-08 10:49 | EDM.PDOC ---
ED HPI GENERAL MEDICAL PROBLEM - General Chief Complaint: General Stated Complaint: [facility] Time Seen by Provider: 11/08/16 09:55 Source of Information: Reports: Patient, EMS, Family History Limitations: Reports: Altered Mental Status - History of Present Illness INITIAL COMMENTS - FREE TEXT/NARRATIVE: 56-year-old female with a known brain tumor has had weakness, decreased oral input, and lethargy over the past 48 hours after having a fairly good day 2 days ago when she was up walking around. She's become incontinent. She still answering questions but very slowly. She apparently does have some headache. No fevers or chills. No significant recent trauma or falls. Onset: Gradual Severity: Moderate Associated Symptoms: Reports: Confusion, Headaches, Weakness. Denies: Chest Pain, Cough, Fever/Chills, Shortness of Breath - Related Data Allergies Allergy/AdvReac Type Severity Reaction Status Date / Time bacitracin Allergy Rash Verified 11/08/16 09:38 morphine Allergy Rash Verified 11/06/16 13:05 Home Meds: Home Meds RABEprazole Sodium [Aciphex] 1 tab PO DAILY 08/08/16 [History] buPROPion [Wellbutrin] 1 tab PO BID 08/08/16 [History] Aspirin 81 mg PO DAILY 08/22/16 [History] Carvedilol 3.125 mg PO BID 08/22/16 [History] Cyanocobalamin (Vitamin B-12) [B-12] 1,000 mcg PO DAILY 08/22/16 [History] Multivitamin [Multivitamins] 1 tab PO DAILY 08/22/16 [History] Potassium 20 meq PO DAILY 08/22/16 [History] Vitamin B Complex [B Complex] 1 tab PO DAILY 08/22/16 [History] atorvaSTATin [Lipitor] 40 mg PO DAILY 08/22/16 [History] levETIRAcetam [Keppra] 1,000 mg PO BID 08/22/16 [History] DULoxetine [Cymbalta] 30 mg PO WITHBREAKFAST 10/29/16 [History] diphenhydrAMINE [Benadryl] 50 mg PO ASDIRECTED 10/29/16 [History] DULoxetine HCl [Cymbalta] 60 mg PO BEDTIME 11/08/16 [History] Past Medical History HEENT History: Reports: Sinusitis Cardiovascular History: Reports: Blood Clots/VTE/DVT, High Cholesterol Respiratory History: Reports: Other (See Below) Other Respiratory History: SIRS Gastrointestinal History: Reports: Chronic Diarrhea, GERD, Other (See Below) Other Gastrointestinal History: lymphocytic colitis Genitourinary History: Reports: Urinary Incontinence, UTI, Recurrent 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: 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: , Other (See Below) Other OB/BYN History: chronic dysplagia Musculoskeletal History: Reports: Fibromyalgia, Osteoporosis, Other (See Below) Other Musculoskeletal History: right hip dislocation Neurological History: Reports: CVA, Headaches, Chronic, Migraines, Neuropathy, Peripheral, Seizure, Other (See Below) Other Neuro History: gliomas Psychiatric History: Reports: Anxiety, Depression, Psych Hospitalization(s), PTSD, Suicide Attempt Other Psychiatric History: multiple personality disorder Hematologic History: Reports: Blood Transfusion(s), Other (See Below) Other Hematologic History: platelet transfusion Immunologic History: Reports: Immunosuppression Oncologic (Cancer) History: Reports: Other (See Below) Other Oncologic History: glioblastoma Dermatologic History: Reports: Other (See Below) Other Dermatologic History: chronic puritis - Infectious Disease History Infectious Disease History: Reports: Chicken Pox, Mumps - Past Surgical History HEENT Surgical History: Reports: Other (See Below) Other HEENT Surgeries/Procedures: cyst removal on neck, hyoid bone removal, amblyopia Cardiovascular Surgical History: Reports: Other (See Below) Other Cardiovascular Surgeries/Procedures: loop monitor implant GI Surgical History: Reports: Cholecystectomy Female Surgical History: Reports: Hysterectomy Neurological Surgical History: Reports: Other (See Below) Other Neurological Surgeries/Procedures: craniotomy Musculoskeletal Surgical History: Reports: Other (See Below) Other Musculoskeletal Surgeries/Procedures:: crainiotomy Social & Family History - Tobacco Use Smoking Status *Q: Current Every Day Smoker Years of Tobacco use: 30 Packs/Tins Daily: 0.1 Used Tobacco, but Quit: Yes Month Tobacco Last Used: July Second Hand Smoke Exposure: No - Caffeine Use Caffeine Use: Reports: Coffee - Alcohol Use Days Per Week of Alcohol Use: 0 - Recreational Drug Use Recreational Drug Use: No Drug Use in Last 12 Months: Yes Recreational Drug Type: Reports: Marijuana/Hashish Recreational Drug Use Frequency: Daily ED ROS GENERAL - Review of Systems Review Of Systems: See Below Constitutional: Reports: Malaise, Weakness. Denies: Fever, Chills HEENT: Denies: Ear Pain, Nosebleed, Throat Pain Respiratory: Reports: Other (Breathing seems unsteady at times, congestive) Cardiovascular: Denies: Chest Pain, Palpitations Endocrine: Reports: Fatigue GI/Abdominal: Denies: Abdominal Pain, Nausea : Reports: Incontinence Skin: Reports: Pallor, Bruising Neurological: Reports: Headache, Trouble Speaking, Difficulty Walking, Weakness ED EXAM, GENERAL - Physical Exam Exam: See Below Exam Limited By: Altered Mental Status General Appearance: Alert Eye Exam: Bilateral Eye: EOMI, PERRL Throat/Mouth: Normal Inspection Respiratory/Chest: No Respiratory Distress, Lungs Clear Cardiovascular: Regular Rate, Rhythm GI/Abdominal: Soft Extremities: No: Pedal Edema Neurological: Alert, Disoriented, Slow to Respond Psychiatric: Depressed Mood, Flat Affect Skin Exam: Warm, Dry, Other (A few scattered bruises on the extremities) Course - Vital Signs Last Recorded V/S: Last Vital Signs Temp 97.5 F 11/08/16 14:59 Pulse 82 11/08/16 14:59 Resp 14 11/08/16 14:59 BP 108/75 11/08/16 14:59 Pulse Ox 93 L 11/08/16 14:59 - Orders/Labs/Meds Orders: Medication Orders Acetaminophen (Tylenol) 650 mg PO Q4H PRN PRN Reason: Pain (Mild 1-3)/fever Aspirin (Aspirin) 81 mg PO DAILY [facility] Atorvastatin Calcium (Lipitor) 40 mg PO DAILY [facility] Bisacodyl (Dulcolax) 5 mg PO DAILY PRN PRN Reason: Constipation Bupropion HCl (Wellbutrin) 75 mg PO BID [facility] Carvedilol (Coreg) 3.125 mg PO BIDMEALS [facility] Cyanocobalamin (Vitamin B12) 1,000 mcg PO DAILY [facility] Dexamethasone (Dexamethasone) 4 mg IVPUSH Q12H [facility] Diphenhydramine HCl (Benadryl) 25 mg PO Q6H PRN PRN Reason: Itching Duloxetine HCl (Cymbalta) 30 mg PO DAILY [facility] Enoxaparin Sodium (Lovenox) 40 mg SUBCUT DAILY [facility] Potassium Chloride/Dextrose/Sod Cl (D5 Ns With 20 Meq Kcl) 1,000 mls @ 125 mls/ hr IV ASDIRECTED [facility] Last Admin: 11/08/16 15:10 Dose: 125 mls/hr Levetiracetam (Keppra) 1,000 mg PO BID [facility] Lorazepam (Ativan) 0.5 - 1 mg IVPUSH Q4H PRN PRN Reason: Nausea/Vomiting Magnesium Hydroxide (Milk Of Magnesia) 30 ml PO Q12H PRN PRN Reason: Constipation Montelukast Sodium (Singulair) 10 mg PO BEDTIME [facility] Ondansetron HCl (Zofran Odt) 4 mg PO Q6H PRN PRN Reason: Nausea able to take PO Ondansetron HCl (Zofran) 4 mg IVPUSH Q6H PRN PRN Reason: Nausea/Vomiting Oxycodone HCl (Oxycodone) 5 mg PO Q4H PRN PRN Reason: Pain (moderate 4-6) Pantoprazole Sodium (Protonix) 40 mg PO ACBREAKFAST [facility] Polyethylene Glycol (Miralax) 17 gm PO DAILY PRN PRN Reason: Constipation Senna/Docusate Sodium (Senna Plus) 1 tab PO BID PRN PRN Reason: Constipation Labs: Laboratory Tests 11/08/16 11/08/16 11/08/16 Range/Units 10:11 10:11 10:22 WBC 0.7 L* (4.5-11.0) K/uL RBC 3.54 (3.30-5.50) M/uL Hgb 10.1 L (12.0-15.0) g/dL Hct 29.6 L (36.0-48.0) % MCV 84 (80-98) fL MCH 29 (27-31) pg MCHC 34 (32-36) % Plt Count 42 L (150-400) K/uL Add Manual Diff Yes Neutrophils % (Manual) 2 L (36-66) % Lymphocytes % (Manual) 96 H (24-44) % Monocytes % (Manual) 2 (2-6) % ABG Hemoglobin 9.8 L (12.0-16.0) g/dL ABG Oxyhemoglobin 24.1 % ABG Carboxyhemoglobin 0.6 (0.0-1.6) % ABG Methemoglobin 0.7 % VBG pH 7.431 (7.350-7.450) VBG pCO2 38.1 mm/Hg VBG pO2 20.4 mm/Hg VBG HCO3 24.9 mmol/L VBG Total CO2 23.5 mmol/L VBG O2 Saturation 24.4 VBG O2 Content 3.3 %vol VBG Base Excess 1.2 mm/L O2 Delivery Device Room air Sodium 136 L (140-148) mmol/L Potassium 3.8 (3.6-5.2) mmol/L Chloride 104 (100-108) mmol/L Carbon Dioxide 24 (21-32) mmol/L Anion Gap 11.8 (5.0-14.0) mmol/L BUN 11 (7-18) mg/dL Creatinine 0.7 (0.6-1.0) mg/dL Est Cr Clr Drug Dosing 80.75 mL/min Estimated GFR (MDRD) > 60 (>60) Glucose 105 (74-106) mg/dL Calcium 9.3 (8.5-10.1) mg/dL Total Bilirubin 0.8 D (0.2-1.0) mg/dL AST 103 H D (15-37) U/L ALT 241 H (12-78) U/L Alkaline Phosphatase 362 H D (46-116) U/L Total Protein 7.6 (6.4-8.2) g/dL Albumin 3.3 L (3.4-5.0) g/dL Globulin 4.3 H (2.3-3.5) g/dL Albumin/Globulin Ratio 0.8 L (1.2-2.2) Meds: Medications Generic Name Dose Route Start Last Admin Trade Name Freq PRN Reason Stop Dose Admin Acetaminophen 650 mg 11/08/16 14:27 Tylenol PO Q4H PRN Pain (Mild 1-3)/fever Aspirin 81 mg 11/09/16 09:00 Aspirin PO DAILY [facility] Atorvastatin Calcium 40 mg 11/09/16 09:00 Lipitor PO DAILY [facility] Bisacodyl 5 mg 11/08/16 14:27 Dulcolax PO DAILY PRN Constipation Bupropion HCl 75 mg 11/08/16 21:00 Wellbutrin PO BID [facility] Carvedilol 3.125 mg 11/08/16 17:00 Coreg PO BIDMEALS [facility] Cyanocobalamin 1,000 mcg 11/09/16 09:00 Vitamin B12 PO DAILY [facility] Dexamethasone 4 mg 11/08/16 21:00 Dexamethasone IVPUSH Q12H [facility] Diphenhydramine HCl 25 mg 11/08/16 14:27 Benadryl PO Q6H PRN Itching Duloxetine HCl 30 mg 11/09/16 09:00 Cymbalta PO DAILY [facility] Enoxaparin Sodium 40 mg 11/09/16 09:00 Lovenox SUBCUT DAILY [facility] Potassium Chloride/Dextrose/Sod Cl 1,000 mls @ 125 mls/hr 11/08/16 14:27 02/16 15:10 D5 Ns With 20 Meq Kcl IV 125 mls/hr ASDIRECTED [facility] Administration Levetiracetam 1,000 mg 11/08/16 21:00 Keppra PO BID [facility] Lorazepam 0.5 - 1 mg 11/08/16 14:27 Ativan IVPUSH Q4H PRN Nausea/Vomiting Magnesium Hydroxide 30 ml 11/08/16 14:27 Milk Of Magnesia PO Q12H PRN Constipation Montelukast Sodium 10 mg 11/08/16 21:00 Singulair PO BEDTIME [facility] Ondansetron HCl 4 mg 11/08/16 14:27 Zofran Odt PO Q6H PRN Nausea able to take PO Ondansetron HCl 4 mg 11/08/16 14:27 Zofran IVPUSH Q6H PRN Nausea/Vomiting Oxycodone HCl 5 mg 11/08/16 14:27 Oxycodone PO Q4H PRN Pain (moderate 4-6) Pantoprazole Sodium 40 mg 11/09/16 07:30 Protonix PO ACBREAKFAST [facility] Polyethylene Glycol 17 gm 11/08/16 14:27 Miralax PO DAILY PRN Constipation Senna/Docusate Sodium 1 tab 11/08/16 14:27 Senna Plus PO BID PRN Constipation Discontinued Medications Generic Name Dose Route Start Last Admin Trade Name Freq PRN Reason Stop Dose Admin Dexamethasone 4 mg 11/08/16 11:18 11/08/16 11:34 Dexamethasone IVPUSH 11/08/16 11:19 4 mg ONETIME ONE Administration Sodium Chloride 1,000 mls @ 500 mls/hr 11/08/16 10:15 11/08/16 10:37 Normal Saline IV 500 mls/hr ASDIRECTED [facility] Administration - Re-Assessments/Exams Free Text/Narrative Re-Assessment/Exam: 11/08/16 10:48 Normal saline at 500 mL an hour was started, CBC and CMP were obtained as well as blood gases on room air. Blood gases returned normal. I discussed her condition with the oncologist at [facility], he recommended another CT scan without contrast. 11/08/16 11:06 White count is now only 700 with 96% lymphocytes. Platelets are 42,000. AST ALT and alkaline phosphatase are elevated. CT of the head shows no acute hemorrhage but worsening edema, she now has 12 mm midline shift versus 4 mm 2 weeks ago. 11/08/16 11:32 Discussed the findings with the oncologist. He recommended inpatient treatment with dexamethasone 4 mg IV 4 times daily and if there is improvement she can be discharged home in the next 2-3 days. Departure - Departure Time of Disposition: 15:32 Disposition: Admitted As Inpatient 66 Condition: poor Clinical Impression: Cerebral edema, Glioblastoma Mental status change Qualifiers: Altered mental status type: somnolence Qualified Code(s): R40.0 - Somnolence - Discharge Information
--- NOTE | 2016-11-08 11:09 | CT ---
Head wo Cont HISTORY: Right cerebral GBM. COMPARISON: 29 Oct 2016. TECHNIQUE: Noncontrast enhanced axial cuts were obtained of the brain. FINDINGS: There is increasing vasogenic edema throughout the right cerebral hemisphere. There is inc reasing midline shift. Previously, there was approximately 4 mm of midline shift towards the left. C urrently, there is 12 mm. shift of midline. There is no hemorrhage. There is effacement of the right lateral ventricle with increasing dilatation of the left lateral ventricle. There is a right cranio ankit. Impression: 1. Patient with known GBM. There is increasing vasogenic edema throughout the right cerebral hemisph ere. There is increased subfalcine shift to the left. There is developing dilatation of the left lat eral ventricle.
[2016-11-08] MEDS ORDERED: Dexamethasone 4 MG/ML SDV IVPUSH ONE (11:18)
--- NOTE | 2016-11-08 12:46 | PCM.HP ---
H&P History of Present Illness - General Date of Service: 11/08/16 Admit Problem/Dx: Admission Diagnosis/Problem Admission Diagnosis/Problem Glioblastoma Source of Information: Patient, Family, Provider History Limitations: Reports: Altered Mental Status - History of Present Illness Initial Comments - Free Text/Narative: Bailee presents to the emergency room today with weakness and confusion. She does not provide much history and most of it is gathered from her and son. They report that over the past 2 days she has had a fairly rapid decline in strength and cognitive status. They are having to essentially carry her anywhere. She is too weak to get out of bed and has been urinating in bed. She has become progressively confused the point that she was not talking this morning. They have not noticed any fevers. She does act like she has a headache and has been holding her head. She has not had any vomiting but she does shake her head when asked about nausea. They have not noticed any diarrhea. Last chemotherapy and radiation were about 2 weeks ago. They're not aware of any sick contacts. does report that she has had very little to eat or drink in the past few days. Workup in the emergency room has revealed pancytopenia on laboratory testing. A head CT was completed and this showed an increase in the cerebral edema with some midline shift on the right side. This surrounds her known glioblastoma. The emergency room physician did discuss the case with her oncologist in [place] and he recommended admission with IV steroids. - Related Data Allergies/Adverse Reactions: Allergies Allergy/AdvReac Type Severity Reaction Status Date / Time bacitracin Allergy Rash Verified 11/08/16 09:38 morphine Allergy Rash Verified 11/06/16 13:05 Home Medications: Home Meds RABEprazole Sodium [Aciphex] 1 tab PO DAILY 08/08/16 [History] buPROPion [Wellbutrin] 1 tab PO BID 08/08/16 [History] Aspirin 81 mg PO DAILY 08/22/16 [History] Carvedilol 3.125 mg PO BID 08/22/16 [History] Cyanocobalamin (Vitamin B-12) [B-12] 1,000 mcg PO DAILY 08/22/16 [History] Montelukast [Singulair] 10 mg PO BEDTIME 08/22/16 [History] Multivitamin [Multivitamins] 1 tab PO DAILY 08/22/16 [History] Potassium 20 meq PO DAILY 08/22/16 [History] Vitamin B Complex [B Complex] 1 tab PO DAILY 08/22/16 [History] atorvaSTATin [Lipitor] 40 mg PO DAILY 08/22/16 [History] levETIRAcetam [Keppra] 1,000 mg PO BID 08/22/16 [History] DULoxetine [Cymbalta] 30 mg PO DAILY 10/29/16 [History] diphenhydrAMINE [Benadryl] 50 mg PO ASDIRECTED 10/29/16 [History] Past Medical History HEENT History: Reports: Sinusitis Cardiovascular History: Reports: Blood Clots/VTE/DVT, High Cholesterol Respiratory History: Reports: Other (See Below) Other Respiratory History: SIRS Gastrointestinal History: Reports: Chronic Diarrhea, GERD, Other (See Below) Other Gastrointestinal History: lymphocytic colitis Genitourinary History: Reports: Urinary Incontinence, UTI, Recurrent 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: , Other (See Below) Other OB/BYN History: chronic dysplagia Musculoskeletal History: Reports: Fibromyalgia, Osteoporosis, Other (See Below) Other Musculoskeletal History: right hip dislocation Neurological History: Reports: CVA, Headaches, Chronic, Migraines, Neuropathy, Peripheral, Seizure, Other (See Below) Other Neuro History: gliomas Psychiatric History: Reports: Anxiety, Depression, Psych Hospitalization(s), PTSD, Suicide Attempt Other Psychiatric History: multiple personality disorder Hematologic History: Reports: Blood Transfusion(s), Other (See Below) Other Hematologic History: platelet transfusion Immunologic History: Reports: Immunosuppression Oncologic (Cancer) History: Reports: Other (See Below) Other Oncologic History: glioblastoma Dermatologic History: Reports: Other (See Below) Other Dermatologic History: chronic puritis - Infectious Disease History Infectious Disease History: Reports: Chicken Pox, Mumps - Past Surgical History HEENT Surgical History: Reports: Other (See Below) Other HEENT Surgeries/Procedures: cyst removal on neck, hyoid bone removal, amblyopia Cardiovascular Surgical History: Reports: Other (See Below) Other Cardiovascular Surgeries/Procedures: loop monitor implant GI Surgical History: Reports: Cholecystectomy Female Surgical History: Reports: Hysterectomy Neurological Surgical History: Reports: Other (See Below) Other Neurological Surgeries/Procedures: craniotomy Musculoskeletal Surgical History: Reports: Other (See Below) Other Musculoskeletal Surgeries/Procedures:: crainiotomy Social & Family History - Family History Oncologic: Denies: Brain - Tobacco Use Smoking Status *Q: Current Every Day Smoker Years of Tobacco use: 30 Packs/Tins Daily: 0.1 Used Tobacco, but Quit: Yes Month Tobacco Last Used: July Second Hand Smoke Exposure: No - Caffeine Use Caffeine Use: Reports: Coffee - Alcohol Use Days Per Week of Alcohol Use: 0 - Recreational Drug Use Recreational Drug Use: No Drug Use in Last 12 Months: Yes Recreational Drug Type: Reports: Marijuana/Hashish Recreational Drug Use Frequency: Daily H&P Review of Systems - Review of Systems: Review Of Systems: Unable To Obtain (Patient is confused and does not respond to most questions) Exam - Exam Exam: See Below - Vital Signs Vital Signs: Last Vital Signs Temp 37.2 C 11/08/16 09:50 Pulse 91 11/08/16 09:50 Resp 20 11/08/16 09:50 BP 111/72 11/08/16 09:50 Pulse Ox 93 L 11/08/16 09:50 Weight: 60.328 kg - Exam Quality Assessment: Supplemental Oxygen General: Alert, Cooperative, Moderate Distress. No: Oriented HEENT: PERRLA, Conjunctiva Clear, Normal Nasal Septum. No: Mucosa Moist & [place] (Very dry), Scleral Icterus Neck: Supple, Trachea Midline. No: Lymphadenopathy, JVD, Thyromegaly Lungs: Clear to Auscultation, Normal Respiratory Effort Cardiovascular: Regular Rate, Regular Rhythm. No: Systolic Murmur Abdomen: Normal Bowel Sounds, Soft. No: Distention, Tenderness Back Exam: Normal Inspection, Full Range of Motion Extremities: Normal Inspection, Normal Pulses. No: Cyanosis Peripheral Pulses: 2+: Dorsalis Pedis (L), Dorsalis Pedis (R) Skin: Warm, Dry, Intact Neuro Extensive - Mental Status: Alert, Slow Response to Commands. No: Oriented x3 Neuro Extensive - Motor, Sensory, Reflexes: Dysarthria, Abnormal Motor (weak on the right side). No: Tremor Psychiatric: Alert, Anxious - Patient Data Lab Results last 24 hrs: Laboratory Results - last 24 hr 11/08/16 11/08/16 11/08/16 Range/Units 10:11 10:11 10:22 WBC 0.7 L* (4.5-11.0) K/uL RBC 3.54 (3.30-5.50) M/uL Hgb 10.1 L (12.0-15.0) g/dL Hct 29.6 L (36.0-48.0) % MCV 84 (80-98) fL MCH 29 (27-31) pg MCHC 34 (32-36) % Plt Count 42 L (150-400) K/uL Add Manual Diff Yes Neutrophils % (Manual) 2 L (36-66) % Lymphocytes % (Manual) 96 H (24-44) % Monocytes % (Manual) 2 (2-6) % ABG Hemoglobin 9.8 L (12.0-16.0) g/dL ABG Oxyhemoglobin 24.1 % ABG Carboxyhemoglobin 0.6 (0.0-1.6) % ABG Methemoglobin 0.7 % VBG pH 7.431 (7.350-7.450) VBG pCO2 38.1 mm/Hg VBG pO2 20.4 mm/Hg VBG HCO3 24.9 mmol/L VBG Total CO2 23.5 mmol/L VBG O2 Saturation 24.4 VBG O2 Content 3.3 %vol VBG Base Excess 1.2 mm/L O2 Delivery Device Room air Sodium 136 L (140-148) mmol/L Potassium 3.8 (3.6-5.2) mmol/L Chloride 104 (100-108) mmol/L Carbon Dioxide 24 (21-32) mmol/L Anion Gap 11.8 (5.0-14.0) mmol/L BUN 11 (7-18) mg/dL Creatinine 0.7 (0.6-1.0) mg/dL Est Cr Clr Drug Dosing 80.75 mL/min Estimated GFR (MDRD) > 60 (>60) Glucose 105 (74-106) mg/dL Calcium 9.3 (8.5-10.1) mg/dL Total Bilirubin 0.8 D (0.2-1.0) mg/dL AST 103 H D (15-37) U/L ALT 241 H (12-78) U/L Alkaline Phosphatase 362 H D (46-116) U/L Total Protein 7.6 (6.4-8.2) g/dL Albumin 3.3 L (3.4-5.0) g/dL Globulin 4.3 H (2.3-3.5) g/dL Albumin/Globulin Ratio 0.8 L (1.2-2.2) Result Diagrams: 11/08/16 10:11 11/08/16 10:11 Imaging Impressions last 24 hrs: Head CT - images personally reviewed - there is significant vasogenic edema surrounding the glioblastoma in her right hemisphere. There is mild midline shift noted. No other acute findings are seen *Q Meaningful Use (ADM) - VTE *Q VTE Criteria *Q: - VTE Risk Assess *Q Each Risk Factor Represents 1 Point: Age 41 - 59 years Total Score 1 Point Risk Factors: 1 Each Risk Factor Represents 2 Points: None Total Score 2 Point Risk Factors: 0 Each Risk Factor Represents 3 Points: Present Cancer or Chemotherapy Total Score 3 Point Risk Factors: 3 Each Risk Factor Represents 5 Points: None Total Score 5 Point Risk Factors: 0 Venous Thromboembolism Risk Factor Score *Q: 4 - Stroke *Q Stroke Criteria *Q: - AMI *Q AMI Criteria *Q: - Problem List (1) Glioblastoma SNOMED Code(s): 370770003, 59883298, 374171856 ICD Code: C71.9 - MALIGNANT NEOPLASM OF BRAIN, UNSPECIFIED Status: Acute Current Visit: Yes (2) Cerebral edema SNOMED Code(s): 4417887 ICD Code: G93.6 - CEREBRAL EDEMA Status: Acute Current Visit: Yes Problem List Initiated/Reviewed/Updated: Yes Orders Last 24hrs: Active Orders 24 hr Category Date Time Status Patient Status Manage Transfer [TRANSFER] Routine ADT 11/08/16 12:33 Ordered Sodium Chloride 0.9% [Normal Saline] 1,000 ml Med 11/08/16 10:15 Active IV ASDIRECTED Resuscitation Status Routine Resus Stat 11/08/16 12:36 Ordered Medication Orders Sodium Chloride (Normal Saline) 1,000 mls @ 500 mls/hr IV ASDIRECTED [facility] Last Admin: 11/08/16 10:37 Dose: 500 mls/hr Assessment/Plan Comment:: Assessment and plan - Glioblastoma with increased cerebral edema - she is status post craniotomy and has had recent chemotherapy and radiation to her brain. 2 days of progressive decline confusion likely due to increasing edema. Care was discussed with her oncologist at the [facility]. IV steroids recommended. -IV dexamethasone twice daily -Continue seizure prophylaxis -Pain control Pancytopenia - secondary to recent chemotherapy. Hemoglobin level and platelets are acceptable at this time. Absolute neutrophil count less than 500 at this time. No fevers. -Start antibiotics empirically if she has a fever -Repeat labs in the morning Maintenance issues - - DVT prophylaxis - enoxaparin - GI prophylaxis - PPI - Nutrition - diet as tolerated - Shook catheter - not indicated CODE STATUS - DNR/DNI Admission justification - This patient will be admitted for inpatient services and is medically appropriate meeting medical necessity for inpatient admission as outlined in my documentation. I reasonably expect the patient will require inpatient services that span a period time over 2 midnights. I reasonably expect this patient to be discharged or transferred within 96 hours after admission to the [facility]. Disposition - anticipate discharge to home after the hospital stay if we are able to make some improvements with the IV steroids Primary care physician - Sho Costello M.D.
[2016-11-08] MEDS ORDERED: diphenhydrAMINE 25 MG Cap PO PRN (14:27)
[2016-11-08] MEDS ORDERED: Ondansetron 4 MG/2 ML SDV IVPUSH PRN (14:27)
[2016-11-08] MEDS ORDERED: LORazepam 2 MG/ML MDV IVPUSH PRN (14:27)
[2016-11-08] MEDS ORDERED: Ondansetron 4 MG Tab.DIS PO PRN (14:27)
[2016-11-08] MEDS: Dextrose 5%-0.9% NaCl with KCl 1,000 ML IV SCH ×2 (15:10→22:51)
[2016-11-08] MEDS: Carvedilol 3.125 MG Tab PO SCH (18:14)
[2016-11-08] MEDS: Dexamethasone 4 MG/ML SDV IVPUSH SCH (21:48)
[2016-11-08] MEDS: Montelukast 10 MG Tab PO SCH (21:50)
[2016-11-08] MEDS: levETIRAcetam 250 MG Tab PO SCH (21:50)
[2016-11-08] MEDS: DULoxetine 30 MG Cap PO SCH (21:57)
[2016-11-09] MEDS: Acetaminophen 325 MG Tab PO PRN ×2 (03:32→08:44)
[2016-11-09] MEDS: oxyCODONE 5 MG Tab PO PRN ×2 (03:32→08:45)
[2016-11-09] MEDS: Dextrose 5%-0.9% NaCl with KCl 1,000 ML IV SCH (06:54)
[2016-11-09] MEDS: Carvedilol 3.125 MG Tab PO SCH ×2 (08:37→16:25)
[2016-11-09] MEDS: Pantoprazole 40 MG Tab.CR PO SCH (08:37)
[2016-11-09] MEDS: levETIRAcetam 250 MG Tab PO SCH ×2 (08:38→21:29)
[2016-11-09] MEDS: Dexamethasone 4 MG/ML SDV IVPUSH SCH ×2 (08:38→21:29)
[2016-11-09] MEDS: Aspirin 81 MG Tab.Chew PO SCH (08:38)
[2016-11-09] MEDS: DULoxetine 30 MG Cap PO SCH ×2 (08:38→21:30)
[2016-11-09] MEDS: atorvaSTATin 20 MG Tab PO SCH (08:39)
[2016-11-09] MEDS: Cyanocobalamin (Vitamin B12) 1,000 MCG Tab PO SCH (08:39)
[2016-11-09] MEDS ORDERED: Enoxaparin 40 MG/0.4 ML Syringe SUBCUT SCH (09:00)
--- NOTE | 2016-11-09 12:14 | PCM.PN ---
- General Info Date of Service: 11/09/16 Functional Status: Reports: pain controlled, urinating - Review of Systems General: Reports: Weakness HEENT: Reports: sore throat Neurological: Reports: Confusion Systems Review Comment:: No acute events overnight. She complains of a sore mouth and sore throat this morning. She has difficulty swallowing because of the pain. She has not had any fevers. Mental status has improved significantly compared to yesterday but she remains weak. She complains of a midline headache but no blurry vision. She thinks that her strength is better but not back to baseline. Not much of an appetite. White blood cell count is 500 and less than 100 of those are neutrophils today. Platelet level is low but there is no evidence for bleeding. - Patient Data Vitals - most recent: Last Vital Signs Temp 35.8 C 11/09/16 06:55 Pulse 75 11/09/16 08:37 Resp 18 11/09/16 06:55 BP 106/64 11/09/16 08:37 Pulse Ox 95 11/09/16 06:55 Weight - most recent: 60.328 kg I&O - last 24 hours: Intake & Output 11/08/16 11/09/16 11/09/16 22:59 06:59 14:59 Intake Total 1250 1365 60 Output Total 1050 Balance 1250 315 60 Lab Results last 24 hrs: Laboratory Results - last 24 hr 11/08/16 11/09/16 11/09/16 Range/Units 19:40 05:11 06:05 WBC 0.5 L* (4.5-11.0) K/uL RBC 3.07 L (3.30-5.50) M/uL Hgb 8.6 L (12.0-15.0) g/dL Hct 25.6 L (36.0-48.0) % MCV 83 (80-98) fL MCH 28 (27-31) pg MCHC 34 (32-36) % Plt Count 30 L (150-400) K/uL Add Manual Diff Yes Neutrophils % (Manual) 16 L (36-66) % Lymphocytes % (Manual) 76 H (24-44) % Monocytes % (Manual) 8 H (2-6) % Sodium 140 (140-148) mmol/L Potassium 4.1 (3.6-5.2) mmol/L Chloride 108 (100-108) mmol/L Carbon Dioxide 20 L (21-32) mmol/L Anion Gap 16.1 H (5.0-14.0) mmol/L BUN 7 (7-18) mg/dL Creatinine 0.6 (0.6-1.0) mg/dL Est Cr Clr Drug Dosing 94.21 mL/min Estimated GFR (MDRD) > 60 (>60) Glucose 149 H (74-106) mg/dL Calcium 8.9 (8.5-10.1) mg/dL Urine Color Yellow Urine Appearance Clear Urine pH 6.0 (4.5-8.0) Ur Specific [place] 1.020 (1.008-1.030) Urine Protein Negative (NEGATIVE) mg/dL Urine Glucose (UA) Normal (NEGATIVE) mg/dL Urine Ketones 15 H (NEGATIVE) mg/dL Urine Occult Blood Negative (NEGATIVE) Urine Nitrite Negative (NEGATIVE) Urine Bilirubin Small (NEGATIVE) Urine Urobilinogen >=12 H (NORMAL) mg/dL Ur Leukocyte Esterase Negative (NEGATIVE) Urine RBC 0-5 (0-5) Urine WBC 0-5 (0-5) Ur Epithelial Cells Few Amorphous Sediment Not seen Urine Bacteria Moderate Urine Mucus Many Urine Other Med Orders - Current: Current Medications Acetaminophen (Tylenol) 650 mg PO Q4H PRN PRN Reason: Pain (Mild 1-3)/fever Last Admin: 11/09/16 08:44 Dose: 650 mg Aspirin (Aspirin) 81 mg PO DAILY [facility] Last Admin: 11/09/16 08:38 Dose: 81 mg Atorvastatin Calcium (Lipitor) 40 mg PO DAILY [facility] Last Admin: 11/09/16 08:39 Dose: 40 mg Bisacodyl (Dulcolax) 5 mg PO DAILY PRN PRN Reason: Constipation Bupropion HCl (Wellbutrin) 75 mg PO BID [facility] Last Admin: 11/09/16 08:39 Dose: 75 mg Carvedilol (Coreg) 3.125 mg PO BIDMEALS [facility] Last Admin: 11/09/16 08:37 Dose: 3.125 mg Cyanocobalamin (Vitamin B12) 1,000 mcg PO DAILY [facility] Last Admin: 11/09/16 08:39 Dose: 1,000 mcg Dexamethasone (Dexamethasone) 4 mg IVPUSH Q12H [facility] Last Admin: 11/09/16 08:38 Dose: 4 mg Diphenhydramine HCl (Benadryl) 25 mg PO Q6H PRN PRN Reason: Itching Duloxetine HCl (Cymbalta) 30 mg PO DAILY [facility] Last Admin: 11/09/16 08:38 Dose: 30 mg Duloxetine HCl (Cymbalta) 60 mg PO BEDTIME [facility] Last Admin: 11/08/16 21:57 Dose: 60 mg Potassium Chloride/Dextrose/Sod Cl (D5 Ns With 20 Meq Kcl) 1,000 mls @ 125 mls/ hr IV ASDIRECTED [facility] Last Admin: 11/09/16 06:54 Dose: 125 mls/hr Levetiracetam (Keppra) 1,000 mg PO BID [facility] Last Admin: 11/09/16 08:38 Dose: 1,000 mg Lorazepam (Ativan) 0.5 - 1 mg IVPUSH Q4H PRN PRN Reason: Nausea/Vomiting Magnesium Hydroxide (Milk Of Magnesia) 30 ml PO Q12H PRN PRN Reason: Constipation Montelukast Sodium (Singulair) 10 mg PO BEDTIME [facility] Last Admin: 11/08/16 21:50 Dose: 10 mg Ondansetron HCl (Zofran Odt) 4 mg PO Q6H PRN PRN Reason: Nausea able to take PO Ondansetron HCl (Zofran) 4 mg IVPUSH Q6H PRN PRN Reason: Nausea/Vomiting Oxycodone HCl (Oxycodone) 5 mg PO Q4H PRN PRN Reason: Pain (moderate 4-6) Last Admin: 11/09/16 08:45 Dose: 5 mg Pantoprazole Sodium (Protonix) 40 mg PO ACBREAKFAST [facility] Last Admin: 11/09/16 08:37 Dose: 40 mg Polyethylene Glycol (Miralax) 17 gm PO DAILY PRN PRN Reason: Constipation Senna/Docusate Sodium (Senna Plus) 1 tab PO BID PRN PRN Reason: Constipation Discontinued Medications Dexamethasone (Dexamethasone) 4 mg IVPUSH ONETIME ONE Stop: 11/08/16 11:19 Last Admin: 11/08/16 11:34 Dose: 4 mg Enoxaparin Sodium (Lovenox) 40 mg SUBCUT DAILY [facility] Last Admin: 11/09/16 08:39 Dose: 40 mg Sodium Chloride (Normal Saline) 1,000 mls @ 500 mls/hr IV ASDIRECTED [facility] Last Admin: 11/08/16 10:37 Dose: 500 mls/hr - Exam Quality Assessment: No: supplemental oxygen General: alert, oriented, cooperative, no acute distress HEENT: Pupils equal, Other (severe thrush) Neck: supple Lungs: Normal respiratory effort Cardiovascular: Regular Rate, Regular Rhythm Abdomen: soft, no distension Extremities: no edema Skin: warm, dry Psy/Mental Status: alert, normal affect - Problem List & Annotations (1) Glioblastoma SNOMED Code(s): 082637853, 39700854, 160393272 Code(s): C71.9 - MALIGNANT NEOPLASM OF BRAIN, UNSPECIFIED Status: Acute Current Visit: Yes (2) Cerebral edema SNOMED Code(s): 9675368 Code(s): G93.6 - CEREBRAL EDEMA Status: Acute Current Visit: Yes - Problem List Review Problem List Initiated/Reviewed/Updated: Yes - My Orders Last 24 Hours: My Active Orders 11/08/16 12:36 Resuscitation Status Routine 11/08/16 14:27 Patient Status [ADT] Routine Bedrest Bedside Commode [RC] ASDIRECTED Intake and Output [RC] QSHIFT Notify Provider Vital Signs [RC] ASDIRECTED Oxygen Therapy [RC] PRN VTE/DVT Education [RC] Per Unit Routine Vital Signs [RC] Q4H Acetaminophen [Tylenol] 650 mg PO Q4H PRN Bisacodyl [Dulcolax] 5 mg PO DAILY PRN Dextrose 5%-0.9% NaCl with KCl [D5 NS with 20 mEq KCl] 1,000 ml IV ASDIRECTED Docusate Sodium/Sennosides [Senna Plus] 1 tab PO BID PRN LORazepam [Ativan] 0.5 - 1 mg IVPUSH Q4H PRN Magnesium Hydroxide [Milk of Magnesia] 30 ml PO Q12H PRN Ondansetron [Zofran ODT] 4 mg PO Q6H PRN Ondansetron [Zofran] 4 mg IVPUSH Q6H PRN Polyethylene Glycol 3350 [MiraLAX] 17 gm PO DAILY PRN diphenhydrAMINE [Benadryl] 25 mg PO Q6H PRN oxyCODONE 5 mg PO Q4H PRN 11/08/16 19:28 Urinary Catheter Assessment [RC] Q12H 11/08/16 19:30 Shook Catheter Insertion [Insert Urinary Catheter] [OM.PC] Q24H 11/08/16 21:00 DULoxetine [Cymbalta] 60 mg PO BEDTIME Dexamethasone 4 mg IVPUSH Q12H 11/08/16 Dinner Regular Diet [DIET] 11/09/16 07:30 Pantoprazole [ProTONIX] 40 mg PO ACBREAKFAST 11/09/16 12:10 Convert IV to Saline Lock [OM.PC] Routine 11/09/16 12:15 Fluconazole/Normal Saline [Diflucan in NS 200 MG/100 ML] 200 mg Premix Bag 1 bag IV Q24H Nystatin [Mycostatin] 5 ml PO QID 11/10/16 05:00 CBC WITH AUTO DIFF [HEME] Timed COMPREHENSIVE METABOLIC PN,CMP [CHEM] Timed - Plan Plan:: Assessment and plan - Glioblastoma with increased cerebral edema - she is status post craniotomy and has had recent chemotherapy and radiation to her brain. 2 days of progressive decline confusion likely due to increasing edema. Care was discussed with her oncologist at the [facility]. IV steroids recommended. -IV dexamethasone twice daily -Continue seizure prophylaxis -Pain control Pancytopenia - secondary to recent chemotherapy. Absolute neutrophil count less than 100 at this time but there is no evidence for infection. Pain levels are also low with no evidence for bleeding. Did discuss the lab values with the on- call oncologist at the [facility]. He did not recommend empiric antibiotics or bone marrow stimulating medications at this time. -Start antibiotics empirically if she has a fever -Blood and urine cultures if she has a fever -Repeat labs in the morning Maintenance issues - - DVT prophylaxis - mechanical with low platelets - GI prophylaxis - PPI - Nutrition - diet as tolerated - Shook catheter - Placed last night for urinary retention and will be removed today Disposition - anticipate discharge to home after the hospital stay Leobardo Costello M.D.
[2016-11-09] MEDS: Nystatin Susp 100,000 Unit/ML 5 ML UD Cup PO SCH ×3 (12:49→21:30)
[2016-11-09] MEDS ORDERED: Fluconazole/Normal Saline 200 MG in Premix Bag 1 BAG IV SCH (13:00)
[2016-11-09] MEDS: Magnesium Hydroxide 400 MG/5 ML Susp 30 ML Cup PO PRN (15:22)
[2016-11-09] MEDS ORDERED: Aluminum Hydroxide/Magnesium Hydroxide/Simethicone Susp 30 ML Cup PO PRN (20:12)
[2016-11-09] MEDS: Montelukast 10 MG Tab PO SCH (21:30)
[2016-11-10] MEDS: oxyCODONE 5 MG Tab PO PRN ×3 (01:58→23:55)
[2016-11-10] MEDS: Acetaminophen 325 MG Tab PO PRN ×3 (01:59→23:56)
[2016-11-10] MEDS: Nystatin Susp 100,000 Unit/ML 5 ML UD Cup PO SCH ×4 (05:37→21:13)
[2016-11-10] MEDS: Pantoprazole 40 MG Tab.CR PO SCH (08:30)
[2016-11-10] MEDS: Carvedilol 3.125 MG Tab PO SCH ×2 (08:32→16:30)
[2016-11-10] MEDS: levETIRAcetam 250 MG Tab PO SCH ×2 (08:33→20:50)
[2016-11-10] MEDS: Cyanocobalamin (Vitamin B12) 1,000 MCG Tab PO SCH (08:33)
[2016-11-10] MEDS: DULoxetine 30 MG Cap PO SCH ×2 (08:33→20:50)
[2016-11-10] MEDS: atorvaSTATin 20 MG Tab PO SCH (08:33)
[2016-11-10] MEDS: Aspirin 81 MG Tab.Chew PO SCH (08:33)
[2016-11-10] MEDS: Dexamethasone 4 MG/ML SDV IVPUSH SCH ×2 (08:33→20:50)
--- NOTE | 2016-11-10 10:55 | PCM.PN ---
- General Info Date of Service: 11/10/16 Functional Status: Reports: pain controlled, tolerating diet - Review of Systems General: Reports: Weakness Musculoskeletal: Reports: leg pain Neurological: Reports: Headache Systems Review Comment:: No acute events overnight. No fevers. Headache is better today but has not resolved. No complaints of blurry vision. She has pain in her left anterior xiao but no significant swelling or tenderness. No complaints of abdominal pain. She has required a few episodes of straight cathetering for urinary retention which is not unusual with her neurogenic bladder. Strength has been improving but she remains fairly debilitated. White blood cell count and platelets remain very low. No evidence for bleeding. - Patient Data Vitals - most recent: Last Vital Signs Temp 35.2 C L 11/10/16 07:07 Pulse 84 11/10/16 08:32 Resp 16 11/10/16 07:07 BP 111/68 11/10/16 08:32 Pulse Ox 93 L 11/10/16 07:07 Weight - most recent: 60.328 kg I&O - last 24 hours: Intake & Output 11/09/16 11/10/16 11/10/16 22:59 06:59 14:59 Output Total 550 650 0 Balance -550 -650 0 Lab Results last 24 hrs: Laboratory Results - last 24 hr 11/10/16 11/10/16 Range/Units 05:47 05:47 WBC 0.6 L* (4.5-11.0) K/uL RBC 3.09 L (3.30-5.50) M/uL Hgb 8.7 L (12.0-15.0) g/dL Hct 25.6 L (36.0-48.0) % MCV 83 (80-98) fL MCH 28 (27-31) pg MCHC 34 (32-36) % Plt Count 29 L* (150-400) K/uL Add Manual Diff Yes Neutrophils % (Manual) 7 L (36-66) % Lymphocytes % (Manual) 87 H (24-44) % Monocytes % (Manual) 6 (2-6) % Anisocytosis Marked H Sodium 140 (140-148) mmol/L Potassium 4.1 (3.6-5.2) mmol/L Chloride 106 (100-108) mmol/L Carbon Dioxide 23 (21-32) mmol/L Anion Gap 10.6 (5.0-14.0) mmol/L BUN 11 D (7-18) mg/dL Creatinine 0.7 (0.6-1.0) mg/dL Est Cr Clr Drug Dosing 80.75 mL/min Estimated GFR (MDRD) > 60 (>60) Glucose 131 H (74-106) mg/dL Calcium 8.9 (8.5-10.1) mg/dL Total Bilirubin 0.4 (0.2-1.0) mg/dL AST 24 D (15-37) U/L ALT 114 H (12-78) U/L Alkaline Phosphatase 239 H (46-116) U/L Total Protein 6.6 (6.4-8.2) g/dL Albumin 2.6 L (3.4-5.0) g/dL Globulin 4.0 H (2.3-3.5) g/dL Albumin/Globulin Ratio 0.7 L (1.2-2.2) Med Orders - Current: Current Medications Acetaminophen (Tylenol) 650 mg PO Q4H PRN PRN Reason: Pain (Mild 1-3)/fever Last Admin: 11/10/16 09:11 Dose: 650 mg Al Hydroxide/Mg Hydroxide (Mag-Al Plus) 30 ml PO Q4H PRN PRN Reason: Heartburn Last Admin: 11/09/16 20:24 Dose: 30 ml Aspirin (Aspirin) 81 mg PO DAILY [facility] Last Admin: 11/10/16 08:33 Dose: 81 mg Atorvastatin Calcium (Lipitor) 40 mg PO DAILY [facility] Last Admin: 11/10/16 08:33 Dose: 40 mg Bisacodyl (Dulcolax) 5 mg PO DAILY PRN PRN Reason: Constipation Bupropion HCl (Wellbutrin) 75 mg PO BID [facility] Last Admin: 11/10/16 08:33 Dose: 75 mg Carvedilol (Coreg) 3.125 mg PO BIDMEALS [facility] Last Admin: 11/10/16 08:32 Dose: 3.125 mg Lidocaine HCl 30 ml/ Al Hydroxide/Mg Hydroxide 30 ml/Diphenhydramine HCl 75 mg 0 ml PO Q4H PRN PRN Reason: MOUTH CARE Cyanocobalamin (Vitamin B12) 1,000 mcg PO DAILY [facility] Last Admin: 11/10/16 08:33 Dose: 1,000 mcg Dexamethasone (Dexamethasone) 4 mg IVPUSH Q12H [facility] Last Admin: 11/10/16 08:33 Dose: 4 mg Diphenhydramine HCl (Benadryl) 25 mg PO Q6H PRN PRN Reason: Itching Duloxetine HCl (Cymbalta) 30 mg PO DAILY [facility] Last Admin: 11/10/16 08:33 Dose: 30 mg Duloxetine HCl (Cymbalta) 60 mg PO BEDTIME [facility] Last Admin: 11/09/16 21:30 Dose: 60 mg Levetiracetam (Keppra) 1,000 mg PO BID [facility] Last Admin: 11/10/16 08:33 Dose: 1,000 mg Lorazepam (Ativan) 0.5 - 1 mg IVPUSH Q4H PRN PRN Reason: Nausea/Vomiting Magnesium Hydroxide (Milk Of Magnesia) 30 ml PO Q12H PRN PRN Reason: Constipation Last Admin: 11/09/16 15:22 Dose: 30 ml Montelukast Sodium (Singulair) 10 mg PO BEDTIME [facility] Last Admin: 11/09/16 21:30 Dose: 10 mg Nystatin (Mycostatin) 5 ml PO QID [facility] Last Admin: 11/10/16 09:14 Dose: 5 ml Ondansetron HCl (Zofran Odt) 4 mg PO Q6H PRN PRN Reason: Nausea able to take PO Ondansetron HCl (Zofran) 4 mg IVPUSH Q6H PRN PRN Reason: Nausea/Vomiting Oxycodone HCl (Oxycodone) 5 mg PO Q4H PRN PRN Reason: Pain (moderate 4-6) Last Admin: 11/10/16 09:11 Dose: 5 mg Pantoprazole Sodium (Protonix) 40 mg PO ACBREAKFAST [facility] Last Admin: 11/10/16 08:30 Dose: 40 mg Polyethylene Glycol (Miralax) 17 gm PO DAILY PRN PRN Reason: Constipation Senna/Docusate Sodium (Senna Plus) 1 tab PO BID PRN PRN Reason: Constipation Discontinued Medications Dexamethasone (Dexamethasone) 4 mg IVPUSH ONETIME ONE Stop: 11/08/16 11:19 Last Admin: 11/08/16 11:34 Dose: 4 mg Enoxaparin Sodium (Lovenox) 40 mg SUBCUT DAILY [facility] Last Admin: 11/09/16 08:39 Dose: 40 mg Sodium Chloride (Normal Saline) 1,000 mls @ 500 mls/hr IV ASDIRECTED [facility] Last Admin: 11/08/16 10:37 Dose: 500 mls/hr Potassium Chloride/Dextrose/Sod Cl (D5 Ns With 20 Meq Kcl) 1,000 mls @ 125 mls/ hr IV ASDIRECTED [facility] Last Admin: 11/09/16 06:54 Dose: 125 mls/hr Fluconazole/Sodium Chloride (200 mg/ Premix) 100 mls @ 100 mls/hr IV Q24H [facility] Stop: 11/09/16 13:59 Last Admin: 11/09/16 12:49 Dose: 100 mls/hr - Exam Quality Assessment: No: supplemental oxygen General: alert, oriented, cooperative, no acute distress Neck: supple Lungs: Normal respiratory effort Cardiovascular: Regular Rate, Regular Rhythm Abdomen: soft, no distension Extremities: no edema, no cyanosis, other (no tenderness left anterior xiao) Skin: warm, dry Psy/Mental Status: alert, normal affect - Problem List & Annotations (1) Glioblastoma SNOMED Code(s): 192185172, 82572691, 630961014 Code(s): C71.9 - MALIGNANT NEOPLASM OF BRAIN, UNSPECIFIED Status: Acute Current Visit: Yes (2) Cerebral edema SNOMED Code(s): 8537834 Code(s): G93.6 - CEREBRAL EDEMA Status: Acute Current Visit: Yes - Problem List Review Problem List Initiated/Reviewed/Updated: Yes - My Orders Last 24 Hours: My Active Orders 11/09/16 12:10 Convert IV to Saline Lock [OM.PC] Routine 11/09/16 12:15 Insert Urinary Catheter [OM.PC] Routine Nystatin [Mycostatin] 5 ml PO QID 11/09/16 14:32 SCD [Sequential Compression Device] [OM.PC] Routine 11/09/16 20:12 Alum Hydrox/Mag Hydrox/Simeth [Mag-Al Plus] 30 ml PO Q4H PRN 11/10/16 10:52 Lidocaine 2% [Xylocaine 2% Viscous] 30 ml Alum Hydrox/Mag Hydrox/Simeth [Mag-Al Plus] 30 ml diphenhydrAMINE [Benadryl] 75 mg 15 ml - use in between doses of nystatin PO Q4H 11/10/16 10:53 Up With Assistance [RC] ASDIRECTED 11/11/16 05:00 BASIC METABOLIC PANEL,BMP [CHEM] Timed CBC WITH AUTO DIFF [HEME] Timed - Plan Plan:: Assessment and plan - Glioblastoma with increased cerebral edema - she is status post chemotherapy and radiation to her brain. Care was discussed with her oncologist at the [facility]. IV steroids recommended. -IV dexamethasone twice daily, transition to oral medications at time of discharge -Continue seizure prophylaxis -Pain control Pancytopenia - secondary to recent chemotherapy. Absolute neutrophil count still very low and her platelets are below 30,000. There is no evidence for infection or bleeding at this time. Dr. Foy at [facility] did not recommend utilizing growth factor agents at this time. -Start antibiotics empirically if she has a fever -Blood and urine cultures if she has a fever -Repeat labs in the morning Maintenance issues - - DVT prophylaxis - mechanical with low platelets - GI prophylaxis - PPI - Nutrition - diet as tolerated - Shook catheter - using straight catheter as needed Disposition - anticipate discharge to home with her after the hospital stay Leobardo Costello M.D.
[2016-11-10] MEDS: Lidocaine 2% 30 ML, Alum Hydrox/Mag Hydrox/Simeth 30 ML, diphenhydrAMINE 75 MG PO PRN ×3 (16:32)
[2016-11-10] MEDS: Montelukast 10 MG Tab PO SCH (20:50)
[2016-11-11] MEDS: Nystatin Susp 100,000 Unit/ML 5 ML UD Cup PO SCH ×4 (05:35→21:40)
[2016-11-11] MEDS: Pantoprazole 40 MG Tab.CR PO SCH (07:18)
[2016-11-11] MEDS: Bisacodyl 5 MG Tab PO PRN (07:24)
[2016-11-11] MEDS: Acetaminophen 325 MG Tab PO PRN (07:24)
[2016-11-11] MEDS: DULoxetine 30 MG Cap PO SCH ×2 (08:30→21:38)
[2016-11-11] MEDS: atorvaSTATin 20 MG Tab PO SCH (08:31)
[2016-11-11] MEDS: Aspirin 81 MG Tab.Chew PO SCH (08:31)
[2016-11-11] MEDS: Cyanocobalamin (Vitamin B12) 1,000 MCG Tab PO SCH (08:31)
[2016-11-11] MEDS: levETIRAcetam 250 MG Tab PO SCH ×2 (08:31→21:40)
[2016-11-11] MEDS: Carvedilol 3.125 MG Tab PO SCH ×2 (08:33→17:33)
[2016-11-11] MEDS: Dexamethasone 4 MG/ML SDV IVPUSH SCH (08:35)
[2016-11-11] MEDS: oxyCODONE 5 MG Tab PO PRN ×4 (10:18→21:38)
--- NOTE | 2016-11-11 12:10 | PCM.PN ---
- General Info Date of Service: 11/11/16 Functional Status: Reports: pain controlled - Review of Systems General: Reports: Weakness. Denies: Fever, Chills Pulmonary: Reports: no symptoms Cardiovascular: Reports: No Symptoms Gastrointestinal: Reports: No symptoms Neurological: Reports: Confusion, Headache, Weakness Systems Review Comment:: This patient is a 56-year-old woman with a known cerebral glioblastoma. She was admitted because of progressive weakness and lethargy, status post chemotherapy and radiation therapy approximately 3 weeks ago. She has been started on IV dexamethasone and has experienced significant improvement over the past 2 days. She does remain somewhat confused and continues to experience left leg and upper extremity weakness. Next follow-up appointment at the [facility] is pending in approximately 2 weeks. Secondary to recent chemotherapy she has experienced pancytopenia, current white count is 700 with absolute neutropenia and platelet count of 20,000. She showed no evidence of bleeding and is not had significant temperature elevation. Her oncologist has recommended that she not be started on antibiotics unless she develops significant fever and to hold on bone marrow stimulating medications as well. - Patient Data Vitals - most recent: Last Vital Signs Temp 97.2 F 11/11/16 08:01 Pulse 82 11/11/16 08:33 Resp 18 11/11/16 08:01 BP 101/72 11/11/16 08:33 Pulse Ox 92 L 11/11/16 08:01 Weight - most recent: 133 lb I&O - last 24 hours: Intake & Output 11/10/16 11/11/16 11/11/16 22:59 06:59 14:59 Intake Total 120 240 Output Total 150 500 Balance -30 -260 Lab Results last 24 hrs: Laboratory Results - last 24 hr 11/11/16 11/11/16 Range/Units 05:00 05:00 WBC 0.7 L* (4.5-11.0) K/uL RBC 3.08 L (3.30-5.50) M/uL Hgb 8.5 L (12.0-15.0) g/dL Hct 25.7 L (36.0-48.0) % MCV 83 (80-98) fL MCH 28 (27-31) pg MCHC 33 (32-36) % Plt Count 21 L* (150-400) K/uL Add Manual Diff Yes Neutrophils % (Manual) 13 L (36-66) % Lymphocytes % (Manual) 78 H (24-44) % Monocytes % (Manual) 7 H (2-6) % Eosinophils % (Manual) 2 (2-4) % Sodium 138 L (140-148) mmol/L Potassium 4.2 (3.6-5.2) mmol/L Chloride 105 (100-108) mmol/L Carbon Dioxide 22 (21-32) mmol/L Anion Gap 15.2 H (5.0-14.0) mmol/L BUN 15 (7-18) mg/dL Creatinine 0.9 (0.6-1.0) mg/dL Est Cr Clr Drug Dosing 62.80 mL/min Estimated GFR (MDRD) > 60 (>60) Glucose 142 H (74-106) mg/dL Calcium 8.6 (8.5-10.1) mg/dL Med Orders - Current: Current Medications Acetaminophen (Tylenol) 650 mg PO Q4H PRN PRN Reason: Pain (Mild 1-3)/fever Last Admin: 11/11/16 07:24 Dose: 650 mg Al Hydroxide/Mg Hydroxide (Mag-Al Plus) 30 ml PO Q4H PRN PRN Reason: Heartburn Last Admin: 11/09/16 20:24 Dose: 30 ml Aspirin (Aspirin) 81 mg PO DAILY [facility] Last Admin: 11/11/16 08:31 Dose: 81 mg Atorvastatin Calcium (Lipitor) 40 mg PO DAILY [facility] Last Admin: 11/11/16 08:31 Dose: 40 mg Bisacodyl (Dulcolax) 5 mg PO DAILY PRN PRN Reason: Constipation Last Admin: 11/11/16 07:24 Dose: 5 mg Bupropion HCl (Wellbutrin) 75 mg PO BID [facility] Last Admin: 11/11/16 08:30 Dose: 75 mg Carvedilol (Coreg) 3.125 mg PO BIDMEALS [facility] Last Admin: 11/11/16 08:33 Dose: 3.125 mg Lidocaine HCl 30 ml/ Al Hydroxide/Mg Hydroxide 30 ml/Diphenhydramine HCl 75 mg 0 ml PO Q4H PRN PRN Reason: MOUTH CARE Last Admin: 11/10/16 16:32 Dose: 15 ml Cyanocobalamin (Vitamin B12) 1,000 mcg PO DAILY [facility] Last Admin: 11/11/16 08:31 Dose: 1,000 mcg Dexamethasone (Dexamethasone) 4 mg PO BID [facility] Diphenhydramine HCl (Benadryl) 25 mg PO Q6H PRN PRN Reason: Itching Duloxetine HCl (Cymbalta) 30 mg PO DAILY [facility] Last Admin: 11/11/16 08:30 Dose: 30 mg Duloxetine HCl (Cymbalta) 60 mg PO BEDTIME [facility] Last Admin: 11/10/16 20:50 Dose: 60 mg Levetiracetam (Keppra) 1,000 mg PO BID [facility] Last Admin: 11/11/16 08:31 Dose: 1,000 mg Lorazepam (Ativan) 0.5 - 1 mg IVPUSH Q4H PRN PRN Reason: Nausea/Vomiting Magnesium Hydroxide (Milk Of Magnesia) 30 ml PO Q12H PRN PRN Reason: Constipation Last Admin: 11/09/16 15:22 Dose: 30 ml Montelukast Sodium (Singulair) 10 mg PO BEDTIME [facility] Last Admin: 11/10/16 20:50 Dose: 10 mg Nystatin (Mycostatin) 5 ml PO QID [facility] Last Admin: 11/11/16 10:19 Dose: 5 ml Ondansetron HCl (Zofran Odt) 4 mg PO Q6H PRN PRN Reason: Nausea able to take PO Ondansetron HCl (Zofran) 4 mg IVPUSH Q6H PRN PRN Reason: Nausea/Vomiting Oxycodone HCl (Oxycodone) 10 mg PO Q4H PRN PRN Reason: Pain (moderate 4-6) Pantoprazole Sodium (Protonix) 40 mg PO ACBREAKFAST [facility] Last Admin: 11/11/16 07:18 Dose: 40 mg Polyethylene Glycol (Miralax) 17 gm PO DAILY PRN PRN Reason: Constipation Senna/Docusate Sodium (Senna Plus) 1 tab PO BID PRN PRN Reason: Constipation Last Admin: 11/11/16 07:24 Dose: 1 tab Discontinued Medications Dexamethasone (Dexamethasone) 4 mg IVPUSH ONETIME ONE Stop: 11/08/16 11:19 Last Admin: 11/08/16 11:34 Dose: 4 mg Dexamethasone (Dexamethasone) 4 mg IVPUSH Q12H [facility] Last Admin: 11/11/16 08:35 Dose: 4 mg Enoxaparin Sodium (Lovenox) 40 mg SUBCUT DAILY [facility] Last Admin: 11/09/16 08:39 Dose: 40 mg Sodium Chloride (Normal Saline) 1,000 mls @ 500 mls/hr IV ASDIRECTED [facility] Last Admin: 11/08/16 10:37 Dose: 500 mls/hr Potassium Chloride/Dextrose/Sod Cl (D5 Ns With 20 Meq Kcl) 1,000 mls @ 125 mls/ hr IV ASDIRECTED [facility] Last Admin: 11/09/16 06:54 Dose: 125 mls/hr Fluconazole/Sodium Chloride (200 mg/ Premix) 100 mls @ 100 mls/hr IV Q24H [facility] Stop: 11/09/16 13:59 Last Admin: 11/09/16 12:49 Dose: 100 mls/hr Oxycodone HCl (Oxycodone) 5 mg PO Q4H PRN PRN Reason: Pain (moderate 4-6) Last Admin: 11/11/16 10:18 Dose: 5 mg - Exam Quality Assessment: DVT prophylaxis General: alert, cooperative, mild distress Lungs: Clear to auscultation, Normal respiratory effort Cardiovascular: Regular Rate, Regular Rhythm Abdomen: bowel sounds present, soft, no tenderness, no distension Extremities: no edema Skin: warm, dry, intact Neurological: other (left upper and lower extremity weakness) - Problem List Review Problem List Initiated/Reviewed/Updated: Yes - My Orders Last 24 Hours: My Active Orders 11/11/16 10:34 Consult to Occupational Therapy [OT Evaluation and Treatment] [CONS] Routine PT Evaluation and Treatment [CONS] Routine 11/11/16 10:36 oxyCODONE 10 mg PO Q4H PRN 11/11/16 11:44 Communication Order [RC] ROUTINE 11/11/16 21:00 Dexamethasone 4 mg PO BID 11/12/16 05:00 BASIC METABOLIC PANEL,BMP [CHEM] Timed CBC WITH AUTO DIFF [HEME] Timed - Plan Plan:: Assessment and plan - Glioblastoma with increased cerebral edema - she is status post chemotherapy and radiation to her brain. Care was discussed with her oncologist at the [facility]. IV steroids recommended.continues to experience significant weakness in her left upper and lower extremity -dexamethasone 4 mg by mouth twice a day -Continue seizure prophylaxis -Pain control Pancytopenia - secondary to recent chemotherapy. Absolute neutrophil count still very low and her platelets are 20,000. There is no evidence for infection or bleeding at this time. Dr. Foy at [facility] did not recommend utilizing growth factor agents at this time. -Start antibiotics empirically if she has a fever -Blood and urine cultures if she has a fever -Repeat labs in the morning Maintenance issues - - DVT prophylaxis - mechanical with low platelets - GI prophylaxis - PPI - Nutrition - diet as tolerated - Shook catheter - using straight catheter as needed Disposition - given ongoing significant disability may require residential placement
[2016-11-11] MEDS: Lidocaine 2% 30 ML, Alum Hydrox/Mag Hydrox/Simeth 30 ML, diphenhydrAMINE 75 MG PO PRN ×3 (13:59)
[2016-11-11] MEDS: Dexamethasone 4 MG Tab PO SCH (21:39)
[2016-11-11] MEDS: Polyethylene Glycol 3350 Powder 17 GM Packet PO PRN (21:39)
[2016-11-11] MEDS: Montelukast 10 MG Tab PO SCH (21:40)
[2016-11-12] MEDS: oxyCODONE 5 MG Tab PO PRN ×3 (02:13→20:00)
[2016-11-12] MEDS: Nystatin Susp 100,000 Unit/ML 5 ML UD Cup PO SCH ×4 (05:16→22:42)
[2016-11-12] MEDS: Magnesium Hydroxide 400 MG/5 ML Susp 30 ML Cup PO PRN (07:13)
[2016-11-12] MEDS: Pantoprazole 40 MG Tab.CR PO SCH (07:14)
[2016-11-12] MEDS: Lidocaine 2% 30 ML, Alum Hydrox/Mag Hydrox/Simeth 30 ML, diphenhydrAMINE 75 MG PO PRN ×6 (07:14→13:45)
[2016-11-12] MEDS: Bisacodyl 5 MG Tab PO PRN (08:46)
[2016-11-12] MEDS: Carvedilol 3.125 MG Tab PO SCH ×2 (08:59→17:09)
[2016-11-12] MEDS: atorvaSTATin 20 MG Tab PO SCH (08:59)
[2016-11-12] MEDS: levETIRAcetam 250 MG Tab PO SCH ×2 (08:59→20:01)
[2016-11-12] MEDS: DULoxetine 30 MG Cap PO SCH ×2 (08:59→20:02)
[2016-11-12] MEDS: Aspirin 81 MG Tab.Chew PO SCH (08:59)
[2016-11-12] MEDS: Cyanocobalamin (Vitamin B12) 1,000 MCG Tab PO SCH (08:59)
[2016-11-12] MEDS: Dexamethasone 4 MG Tab PO SCH ×3 (09:00→20:02)
--- NOTE | 2016-11-12 15:21 | PCM.PN ---
- General Info Date of Service: 11/12/16 Functional Status: Reports: pain controlled, tolerating diet - Review of Systems General: Reports: Weakness. Denies: Fever, Chills Pulmonary: Reports: no symptoms Cardiovascular: Reports: No Symptoms Gastrointestinal: Reports: No symptoms Neurological: Reports: Difficulty Walking, Weakness Systems Review Comment:: This patient has noted further improvement in strength over the past 24 hours, left arm function seems to be better than it had yesterday, continues to have difficulty with standing and ambulation because of left leg weakness. She feels that her vision is somewhat more blurred than it had been yesterday. White blood cell count remains significantly low as is her platelet count. Discussed her condition with her oncologist at the [facility] in [place] they have recommended a dose of Avastin 450 mg IV infusion, as well as platelet transfusion. Continue to hold on antibiotic therapy or bone marrow stimulant, unless she develops significant temperature elevation or evidence of infection. - Patient Data Vitals - most recent: Last Vital Signs Temp 96.6 F 11/12/16 15:08 Pulse 77 11/12/16 15:08 Resp 16 11/12/16 15:08 BP 98/74 11/12/16 15:08 Pulse Ox 90 L 11/12/16 15:08 Weight - most recent: 133 lb I&O - last 24 hours: Intake & Output 11/12/16 11/12/16 11/12/16 06:59 14:59 22:59 Intake Total 120 240 Output Total 900 Balance 120 -660 Lab Results last 24 hrs: Laboratory Results - last 24 hr 11/12/16 11/12/16 Range/Units 05:00 05:00 WBC 0.8 L* (4.5-11.0) K/uL RBC 3.02 L (3.30-5.50) M/uL Hgb 8.5 L (12.0-15.0) g/dL Hct 25.4 L (36.0-48.0) % MCV 84 (80-98) fL MCH 28 (27-31) pg MCHC 34 (32-36) % Plt Count 16 L* (150-400) K/uL Add Manual Diff Yes Neutrophils % (Manual) 17 L (36-66) % Lymphocytes % (Manual) 74 H (24-44) % Monocytes % (Manual) 8 H (2-6) % Basophils % (Manual) 1 (0-1) % Sodium 139 L (140-148) mmol/L Potassium 4.5 (3.6-5.2) mmol/L Chloride 106 (100-108) mmol/L Carbon Dioxide 26 (21-32) mmol/L Anion Gap 11.5 (5.0-14.0) mmol/L BUN 19 H (7-18) mg/dL Creatinine 0.9 (0.6-1.0) mg/dL Est Cr Clr Drug Dosing 62.80 mL/min Estimated GFR (MDRD) > 60 (>60) Glucose 116 H (74-106) mg/dL Calcium 8.5 (8.5-10.1) mg/dL Med Orders - Current: Current Medications Acetaminophen (Tylenol) 650 mg PO Q4H PRN PRN Reason: Pain (Mild 1-3)/fever Last Admin: 11/11/16 07:24 Dose: 650 mg Al Hydroxide/Mg Hydroxide (Mag-Al Plus) 30 ml PO Q4H PRN PRN Reason: Heartburn Last Admin: 11/09/16 20:24 Dose: 30 ml Aspirin (Aspirin) 81 mg PO DAILY [facility] Last Admin: 11/12/16 08:59 Dose: 81 mg Atorvastatin Calcium (Lipitor) 40 mg PO DAILY [facility] Last Admin: 11/12/16 08:59 Dose: 40 mg Bisacodyl (Dulcolax) 5 mg PO DAILY PRN PRN Reason: Constipation Last Admin: 11/12/16 08:46 Dose: 5 mg Bupropion HCl (Wellbutrin) 75 mg PO BID [facility] Last Admin: 11/12/16 09:00 Dose: 75 mg Carvedilol (Coreg) 3.125 mg PO BIDMEALS [facility] Last Admin: 11/12/16 08:59 Dose: 3.125 mg Lidocaine HCl 30 ml/ Al Hydroxide/Mg Hydroxide 30 ml/Diphenhydramine HCl 75 mg 0 ml PO Q4H PRN PRN Reason: MOUTH CARE Last Admin: 11/12/16 13:45 Dose: 15 ml Cyanocobalamin (Vitamin B12) 1,000 mcg PO DAILY [facility] Last Admin: 11/12/16 08:59 Dose: 1,000 mcg Dexamethasone (Dexamethasone) 4 mg PO Q6H [facility] Diphenhydramine HCl (Benadryl) 25 mg PO Q6H PRN PRN Reason: Itching Duloxetine HCl (Cymbalta) 30 mg PO DAILY [facility] Last Admin: 11/12/16 08:59 Dose: 30 mg Duloxetine HCl (Cymbalta) 60 mg PO BEDTIME [facility] Last Admin: 11/11/16 21:38 Dose: 60 mg Levetiracetam (Keppra) 1,000 mg PO BID [facility] Last Admin: 11/12/16 08:59 Dose: 1,000 mg Lorazepam (Ativan) 0.5 - 1 mg IVPUSH Q4H PRN PRN Reason: Nausea/Vomiting Magnesium Hydroxide (Milk Of Magnesia) 30 ml PO Q12H PRN PRN Reason: Constipation Last Admin: 11/12/16 07:13 Dose: 30 ml Montelukast Sodium (Singulair) 10 mg PO BEDTIME [facility] Last Admin: 11/11/16 21:40 Dose: 10 mg Nystatin (Mycostatin) 5 ml PO QID [facility] Last Admin: 11/12/16 09:00 Dose: 5 ml Ondansetron HCl (Zofran Odt) 4 mg PO Q6H PRN PRN Reason: Nausea able to take PO Ondansetron HCl (Zofran) 4 mg IVPUSH Q6H PRN PRN Reason: Nausea/Vomiting Oxycodone HCl (Oxycodone) 10 mg PO Q4H PRN PRN Reason: Pain (moderate 4-6) Last Admin: 11/12/16 02:13 Dose: 10 mg Pantoprazole Sodium (Protonix) 40 mg PO ACBREAKFAST [facility] Last Admin: 11/12/16 07:14 Dose: 40 mg Polyethylene Glycol (Miralax) 17 gm PO DAILY PRN PRN Reason: Constipation Last Admin: 11/11/16 21:39 Dose: 17 gm Senna/Docusate Sodium (Senna Plus) 1 tab PO BID PRN PRN Reason: Constipation Last Admin: 11/11/16 07:24 Dose: 1 tab Discontinued Medications Dexamethasone (Dexamethasone) 4 mg IVPUSH ONETIME ONE Stop: 11/08/16 11:19 Last Admin: 11/08/16 11:34 Dose: 4 mg Dexamethasone (Dexamethasone) 4 mg IVPUSH Q12H [facility] Last Admin: 11/11/16 08:35 Dose: 4 mg Dexamethasone (Dexamethasone) 4 mg PO BID [facility] Last Admin: 11/12/16 09:00 Dose: 4 mg Enoxaparin Sodium (Lovenox) 40 mg SUBCUT DAILY [facility] Last Admin: 11/09/16 08:39 Dose: 40 mg Sodium Chloride (Normal Saline) 1,000 mls @ 500 mls/hr IV ASDIRECTED [facility] Last Admin: 11/08/16 10:37 Dose: 500 mls/hr Potassium Chloride/Dextrose/Sod Cl (D5 Ns With 20 Meq Kcl) 1,000 mls @ 125 mls/ hr IV ASDIRECTED [facility] Last Admin: 11/09/16 06:54 Dose: 125 mls/hr Fluconazole/Sodium Chloride (200 mg/ Premix) 100 mls @ 100 mls/hr IV Q24H [facility] Stop: 11/09/16 13:59 Last Admin: 11/09/16 12:49 Dose: 100 mls/hr Oxycodone HCl (Oxycodone) 5 mg PO Q4H PRN PRN Reason: Pain (moderate 4-6) Last Admin: 11/11/16 10:18 Dose: 5 mg - Exam Quality Assessment: DVT prophylaxis General: alert, oriented, cooperative, no acute distress Lungs: Clear to auscultation, Normal respiratory effort Cardiovascular: Regular Rate, Regular Rhythm, No Murmurs Abdomen: bowel sounds present, soft, no tenderness, no distension Extremities: no edema Skin: warm, dry, intact Neurological: other (Weakness left leg and left upper extremity) - Problem List Review Problem List Initiated/Reviewed/Updated: Yes - My Orders Last 24 Hours: My Active Orders 11/12/16 15:00 Dexamethasone 4 mg PO Q6H 11/12/16 15:11 PLATELETS [facility] [BBK] Urgent Transfuse Platelets [COMM] Urgent 11/13/16 05:00 BASIC METABOLIC PANEL,BMP [CHEM] Timed CBC WITH AUTO DIFF [HEME] Timed - Plan Plan:: Assessment and plan - Glioblastoma with increased cerebral edema - she is status post chemotherapy and radiation to her brain. Reviewed current condition with her oncologist at the [facility] in [place], he has recommended further therapy with Avastin. -Avastin 7.5 mg/kg IV infusion -dexamethasone 4 mg by mouth q6 hours -Continue seizure prophylaxis -Oxycodone 10 mg by mouth every 4 hours as needed for headache Pancytopenia - secondary to recent chemotherapy. Absolute neutrophil count still very low and her platelets are 16,000. There is no evidence for infection or bleeding at this time. -Transfuse 1 unit of platelets -Start antibiotics empirically if she has a fever -Blood and urine cultures if she has a fever -Repeat labs in the morning Maintenance issues - - DVT prophylaxis - mechanical with low platelets - GI prophylaxis - PPI - Nutrition - diet as tolerated - Shook catheter - using straight catheter as needed Disposition - given ongoing significant disability will require senior living placement
[2016-11-12] MEDS: Montelukast 10 MG Tab PO SCH (20:01)
[2016-11-13] MEDS: oxyCODONE 5 MG Tab PO PRN ×3 (00:48→21:29)
[2016-11-13] MEDS: Dexamethasone 4 MG Tab PO SCH ×4 (04:31→21:29)
[2016-11-13] MEDS: Nystatin Susp 100,000 Unit/ML 5 ML UD Cup PO SCH ×4 (07:09→21:29)
[2016-11-13] MEDS: Pantoprazole 40 MG Tab.CR PO SCH (07:10)
[2016-11-13] MEDS: Polyethylene Glycol 3350 Powder 17 GM Packet PO PRN (07:43)
[2016-11-13] MEDS: levETIRAcetam 250 MG Tab PO SCH ×2 (08:38→21:28)
[2016-11-13] MEDS: Aspirin 81 MG Tab.Chew PO SCH (08:38)
[2016-11-13] MEDS: DULoxetine 30 MG Cap PO SCH ×2 (08:38→21:29)
[2016-11-13] MEDS: Carvedilol 3.125 MG Tab PO SCH ×2 (08:38→18:33)
[2016-11-13] MEDS: Cyanocobalamin (Vitamin B12) 1,000 MCG Tab PO SCH (08:39)
[2016-11-13] MEDS: atorvaSTATin 20 MG Tab PO SCH (08:39)
[2016-11-13] MEDS: Lidocaine 2% 30 ML, Alum Hydrox/Mag Hydrox/Simeth 30 ML, diphenhydrAMINE 75 MG PO PRN ×6 (08:41→18:33)
[2016-11-13] MEDS: Magnesium Hydroxide 400 MG/5 ML Susp 30 ML Cup PO PRN (10:58)
[2016-11-13] MEDS: Bisacodyl 5 MG Tab PO PRN (10:58)
[2016-11-13] MEDS ORDERED: Bisacodyl 10 MG Supp RECTAL ONE (11:00)
--- NOTE | 2016-11-13 16:53 | PCM.PN ---
- General Info Date of Service: 11/13/16 Functional Status: Reports: pain controlled, tolerating diet, urinating - Review of Systems General: Denies: Fever, Weakness, Chills HEENT: Reports: no symptoms Pulmonary: Reports: no symptoms Cardiovascular: Reports: No Symptoms Gastrointestinal: Reports: No symptoms Neurological: Reports: Difficulty Walking, Gait Disturbance, Other (Persistent left leg and left upper extremity weakness, improved from admission) Systems Review Comment:: As patient has been stable over the past 24 hours she has had no significant temperature elevation or evidence of fever. White blood cell count is modestly improved but still remains absolutely neutropenic. Platelet count is dropped further down to 9000, she received 1 unit of platelets earlier today. We are unable to arrange the Avastin infusion and she will remain in the hospital likely over the next few days until this can be accomplished. Despite low platelet count has had no evidence of significant bleeding. - Patient Data Vitals - most recent: Last Vital Signs Temp 96.7 F 11/13/16 15:10 Pulse 72 11/13/16 15:10 Resp 17 11/13/16 15:10 BP 99/69 11/13/16 15:10 Pulse Ox 91 L 11/13/16 15:10 Weight - most recent: 133 lb I&O - last 24 hours: Intake & Output 11/13/16 11/13/16 11/13/16 06:59 14:59 22:59 Intake Total 722 200 Output Total 500 300 600 Balance -500 422 -400 Lab Results last 24 hrs: Laboratory Results - last 24 hr 11/13/16 11/13/16 Range/Units 05:34 05:34 WBC 1.0 L (4.5-11.0) K/uL RBC 2.95 L (3.30-5.50) M/uL Hgb 8.2 L (12.0-15.0) g/dL Hct 24.6 L (36.0-48.0) % MCV 83 (80-98) fL MCH 28 (27-31) pg MCHC 33 (32-36) % Plt Count 9 L* (150-400) K/uL Add Manual Diff Yes Neutrophils % (Manual) 15 L (36-66) % Band Neutrophils % 2 L (5-11) % Lymphocytes % (Manual) 75 H (24-44) % Monocytes % (Manual) 8 H (2-6) % Sodium 138 L (140-148) mmol/L Potassium 4.1 (3.6-5.2) mmol/L Chloride 105 (100-108) mmol/L Carbon Dioxide 25 (21-32) mmol/L Anion Gap 12.1 (5.0-14.0) mmol/L BUN 18 (7-18) mg/dL Creatinine 0.8 (0.6-1.0) mg/dL Est Cr Clr Drug Dosing 70.66 mL/min Estimated GFR (MDRD) > 60 (>60) Glucose 132 H (74-106) mg/dL Calcium 8.4 L (8.5-10.1) mg/dL Med Orders - Current: Current Medications Acetaminophen (Tylenol) 650 mg PO Q4H PRN PRN Reason: Pain (Mild 1-3)/fever Last Admin: 11/11/16 07:24 Dose: 650 mg Al Hydroxide/Mg Hydroxide (Mag-Al Plus) 30 ml PO Q4H PRN PRN Reason: Heartburn Last Admin: 11/09/16 20:24 Dose: 30 ml Aspirin (Aspirin) 81 mg PO DAILY [facility] Last Admin: 11/13/16 08:38 Dose: 81 mg Atorvastatin Calcium (Lipitor) 40 mg PO DAILY [facility] Last Admin: 11/13/16 08:39 Dose: 40 mg Bisacodyl (Dulcolax) 5 mg PO DAILY PRN PRN Reason: Constipation Last Admin: 11/13/16 10:58 Dose: 5 mg Bupropion HCl (Wellbutrin) 75 mg PO BID [facility] Last Admin: 11/13/16 08:39 Dose: 75 mg Carvedilol (Coreg) 3.125 mg PO BIDMEALS [facility] Last Admin: 11/13/16 08:38 Dose: 3.125 mg Lidocaine HCl 30 ml/ Al Hydroxide/Mg Hydroxide 30 ml/Diphenhydramine HCl 75 mg 0 ml PO Q4H PRN PRN Reason: MOUTH CARE Last Admin: 11/13/16 08:41 Dose: 15 ml Cyanocobalamin (Vitamin B12) 1,000 mcg PO DAILY [facility] Last Admin: 11/13/16 08:39 Dose: 1,000 mcg Dexamethasone (Dexamethasone) 4 mg PO Q6H [facility] Last Admin: 11/13/16 15:23 Dose: 4 mg Diphenhydramine HCl (Benadryl) 25 mg PO Q6H PRN PRN Reason: Itching Duloxetine HCl (Cymbalta) 30 mg PO DAILY [facility] Last Admin: 11/13/16 08:38 Dose: 30 mg Duloxetine HCl (Cymbalta) 60 mg PO BEDTIME [facility] Last Admin: 11/12/16 20:02 Dose: 60 mg Levetiracetam (Keppra) 1,000 mg PO BID [facility] Last Admin: 11/13/16 08:38 Dose: 1,000 mg Lorazepam (Ativan) 0.5 - 1 mg IVPUSH Q4H PRN PRN Reason: Nausea/Vomiting Magnesium Hydroxide (Milk Of Magnesia) 30 ml PO Q12H PRN PRN Reason: Constipation Last Admin: 11/13/16 10:58 Dose: 30 ml Montelukast Sodium (Singulair) 10 mg PO BEDTIME [facility] Last Admin: 11/12/16 20:01 Dose: 10 mg Nystatin (Mycostatin) 5 ml PO QID [facility] Last Admin: 11/13/16 15:24 Dose: 5 ml Ondansetron HCl (Zofran Odt) 4 mg PO Q6H PRN PRN Reason: Nausea able to take PO Ondansetron HCl (Zofran) 4 mg IVPUSH Q6H PRN PRN Reason: Nausea/Vomiting Oxycodone HCl (Oxycodone) 10 mg PO Q4H PRN PRN Reason: Pain (moderate 4-6) Last Admin: 11/13/16 07:43 Dose: 10 mg Pantoprazole Sodium (Protonix) 40 mg PO ACBREAKFAST [facility] Last Admin: 11/13/16 07:10 Dose: 40 mg Polyethylene Glycol (Miralax) 17 gm PO DAILY PRN PRN Reason: Constipation Last Admin: 11/13/16 07:43 Dose: 17 gm Senna/Docusate Sodium (Senna Plus) 1 tab PO BID PRN PRN Reason: Constipation Last Admin: 11/11/16 07:24 Dose: 1 tab Discontinued Medications Bisacodyl (Dulcolax) 10 mg RECTAL ONETIME ONE Stop: 11/13/16 11:01 Last Admin: 11/13/16 11:23 Dose: 10 mg Dexamethasone (Dexamethasone) 4 mg IVPUSH ONETIME ONE Stop: 11/08/16 11:19 Last Admin: 11/08/16 11:34 Dose: 4 mg Dexamethasone (Dexamethasone) 4 mg IVPUSH Q12H [facility] Last Admin: 11/11/16 08:35 Dose: 4 mg Dexamethasone (Dexamethasone) 4 mg PO BID [facility] Last Admin: 11/12/16 09:00 Dose: 4 mg Enoxaparin Sodium (Lovenox) 40 mg SUBCUT DAILY [facility] Last Admin: 11/09/16 08:39 Dose: 40 mg Sodium Chloride (Normal Saline) 1,000 mls @ 500 mls/hr IV ASDIRECTED [facility] Last Admin: 11/08/16 10:37 Dose: 500 mls/hr Potassium Chloride/Dextrose/Sod Cl (D5 Ns With 20 Meq Kcl) 1,000 mls @ 125 mls/ hr IV ASDIRECTED [facility] Last Admin: 11/09/16 06:54 Dose: 125 mls/hr Fluconazole/Sodium Chloride (200 mg/ Premix) 100 mls @ 100 mls/hr IV Q24H [facility] Stop: 11/09/16 13:59 Last Admin: 11/09/16 12:49 Dose: 100 mls/hr Oxycodone HCl (Oxycodone) 5 mg PO Q4H PRN PRN Reason: Pain (moderate 4-6) Last Admin: 11/11/16 10:18 Dose: 5 mg - Exam General: alert, oriented, cooperative, no acute distress Lungs: Clear to auscultation, Normal respiratory effort Cardiovascular: Regular Rate, Regular Rhythm, No Murmurs Abdomen: bowel sounds present, soft, no tenderness, no distension Extremities: no edema Skin: warm, dry, intact Neurological: other (Left arm and leg weakness) - Problem List Review Problem List Initiated/Reviewed/Updated: Yes - My Orders Last 24 Hours: My Active Orders 11/14/16 05:00 CBC WITH AUTO DIFF [HEME] Timed - Plan Plan:: Assessment and plan - Glioblastoma with increased cerebral edema - she is status post chemotherapy and radiation to her brain. Reviewed current condition with her oncologist at the [facility] in [place], he has recommended further therapy with Avastin. -Avastin 7.5 mg/kg IV infusion, not able to be accomplished today because of insurance complications -dexamethasone 4 mg by mouth q6 hours -Continue seizure prophylaxis -Oxycodone 10 mg by mouth every 4 hours as needed for headache Pancytopenia - secondary to recent chemotherapy. Absolute neutrophil count still very low and her platelets are 9,000. There is no evidence for infection or bleeding at this time. -Transfused 1 unit of platelets earlier today -Start antibiotics empirically if she has a fever -Blood and urine cultures if she has a fever -Repeat labs in the morning Maintenance issues - - DVT prophylaxis - mechanical with low platelets - GI prophylaxis - PPI - Nutrition - diet as tolerated - Shook catheter - using straight catheter as needed Disposition - given ongoing significant disability will require fdc placement
[2016-11-13] MEDS: Montelukast 10 MG Tab PO SCH (21:29)
[2016-11-14] MEDS: Dexamethasone 4 MG Tab PO SCH ×4 (02:43→21:20)
[2016-11-14] MEDS: Nystatin Susp 100,000 Unit/ML 5 ML UD Cup PO SCH ×4 (06:11→21:20)
[2016-11-14] MEDS: oxyCODONE 5 MG Tab PO PRN ×2 (07:30→18:26)
[2016-11-14] MEDS: Pantoprazole 40 MG Tab.CR PO SCH (07:30)
[2016-11-14] MEDS: Carvedilol 3.125 MG Tab PO SCH ×2 (07:36→16:14)
[2016-11-14] MEDS: atorvaSTATin 20 MG Tab PO SCH (08:22)
[2016-11-14] MEDS: Aspirin 81 MG Tab.Chew PO SCH (08:22)
[2016-11-14] MEDS: Cyanocobalamin (Vitamin B12) 1,000 MCG Tab PO SCH (08:22)
[2016-11-14] MEDS: DULoxetine 30 MG Cap PO SCH ×2 (08:22→21:20)
[2016-11-14] MEDS: levETIRAcetam 250 MG Tab PO SCH ×2 (08:22→21:20)
--- NOTE | 2016-11-14 12:49 | PCM.PN ---
- General Info Date of Service: 11/14/16 Functional Status: Reports: pain controlled, tolerating diet, urinating - Review of Systems General: Reports: Weakness. Denies: Fever, Chills Pulmonary: Reports: no symptoms Cardiovascular: Reports: No Symptoms Gastrointestinal: Reports: No symptoms Systems Review Comment:: This patient has remained stable over the past 24 hours, she does have ongoing symptoms of persistent blurred vision, left upper and lower extremity weakness. White blood cell count is showing further improvement today now up to 1200 and her platelets are 74,000 up from 9000 yesterday. - Patient Data Vitals - most recent: Last Vital Signs Temp 97.6 F 11/14/16 12:04 Pulse 65 11/14/16 12:04 Resp 16 11/14/16 12:04 BP 93/67 11/14/16 12:04 Pulse Ox 93 L 11/14/16 12:04 Weight - most recent: 133 lb I&O - last 24 hours: Intake & Output 11/13/16 11/14/16 11/14/16 22:59 06:59 14:59 Intake Total 560 960 Output Total 900 1150 700 Balance -340 -1150 260 Lab Results last 24 hrs: Laboratory Results - last 24 hr 11/14/16 Range/Units 05:00 WBC 1.2 L (4.5-11.0) K/uL RBC 3.04 L (3.30-5.50) M/uL Hgb 8.6 L (12.0-15.0) g/dL Hct 25.3 L (36.0-48.0) % MCV 83 (80-98) fL MCH 28 (27-31) pg MCHC 34 (32-36) % Plt Count 74 L (150-400) K/uL Neut % (Auto) 21 L (36-66) % Lymph % (Auto) 63 H (24-44) % [place] % (Auto) 16 H (2-6) % Eos % (Auto) 0 L (2-4) % Baso % (Auto) 0 (0-1) % Med Orders - Current: Current Medications Acetaminophen (Tylenol) 650 mg PO Q4H PRN PRN Reason: Pain (Mild 1-3)/fever Last Admin: 11/11/16 07:24 Dose: 650 mg Al Hydroxide/Mg Hydroxide (Mag-Al Plus) 30 ml PO Q4H PRN PRN Reason: Heartburn Last Admin: 11/09/16 20:24 Dose: 30 ml Aspirin (Aspirin) 81 mg PO DAILY [facility] Last Admin: 11/14/16 08:22 Dose: 81 mg Atorvastatin Calcium (Lipitor) 40 mg PO DAILY [facility] Last Admin: 11/14/16 08:22 Dose: 40 mg Bisacodyl (Dulcolax) 5 mg PO DAILY PRN PRN Reason: Constipation Last Admin: 11/13/16 10:58 Dose: 5 mg Bupropion HCl (Wellbutrin) 75 mg PO BID [facility] Last Admin: 11/14/16 08:23 Dose: 75 mg Carvedilol (Coreg) 3.125 mg PO BIDMEALS [facility] Last Admin: 11/14/16 07:36 Dose: 3.125 mg Lidocaine HCl 30 ml/ Al Hydroxide/Mg Hydroxide 30 ml/Diphenhydramine HCl 75 mg 0 ml PO Q4H PRN PRN Reason: MOUTH CARE Last Admin: 11/13/16 18:33 Dose: 15 ml Cyanocobalamin (Vitamin B12) 1,000 mcg PO DAILY [facility] Last Admin: 11/14/16 08:22 Dose: 1,000 mcg Dexamethasone (Dexamethasone) 4 mg PO Q6H [facility] Last Admin: 11/14/16 08:22 Dose: 4 mg Diphenhydramine HCl (Benadryl) 25 mg PO Q6H PRN PRN Reason: Itching Duloxetine HCl (Cymbalta) 30 mg PO DAILY [facility] Last Admin: 11/14/16 08:22 Dose: 30 mg Duloxetine HCl (Cymbalta) 60 mg PO BEDTIME [facility] Last Admin: 11/13/16 21:29 Dose: 60 mg Levetiracetam (Keppra) 1,000 mg PO BID [facility] Last Admin: 11/14/16 08:22 Dose: 1,000 mg Lorazepam (Ativan) 0.5 - 1 mg IVPUSH Q4H PRN PRN Reason: Nausea/Vomiting Magnesium Hydroxide (Milk Of Magnesia) 30 ml PO Q12H PRN PRN Reason: Constipation Last Admin: 11/13/16 10:58 Dose: 30 ml Montelukast Sodium (Singulair) 10 mg PO BEDTIME [facility] Last Admin: 11/13/16 21:29 Dose: 10 mg Nystatin (Mycostatin) 5 ml PO QID [facility] Last Admin: 11/14/16 12:03 Dose: 5 ml Ondansetron HCl (Zofran Odt) 4 mg PO Q6H PRN PRN Reason: Nausea able to take PO Ondansetron HCl (Zofran) 4 mg IVPUSH Q6H PRN PRN Reason: Nausea/Vomiting Oxycodone HCl (Oxycodone) 10 mg PO Q4H PRN PRN Reason: Pain (moderate 4-6) Last Admin: 11/14/16 07:30 Dose: 10 mg Pantoprazole Sodium (Protonix) 40 mg PO ACBREAKFAST [facility] Last Admin: 11/14/16 07:30 Dose: 40 mg Polyethylene Glycol (Miralax) 17 gm PO DAILY PRN PRN Reason: Constipation Last Admin: 11/13/16 07:43 Dose: 17 gm Senna/Docusate Sodium (Senna Plus) 1 tab PO BID PRN PRN Reason: Constipation Last Admin: 11/14/16 07:30 Dose: 1 tab Discontinued Medications Bisacodyl (Dulcolax) 10 mg RECTAL ONETIME ONE Stop: 11/13/16 11:01 Last Admin: 11/13/16 11:23 Dose: 10 mg Dexamethasone (Dexamethasone) 4 mg IVPUSH ONETIME ONE Stop: 11/08/16 11:19 Last Admin: 11/08/16 11:34 Dose: 4 mg Dexamethasone (Dexamethasone) 4 mg IVPUSH Q12H [facility] Last Admin: 11/11/16 08:35 Dose: 4 mg Dexamethasone (Dexamethasone) 4 mg PO BID [facility] Last Admin: 11/12/16 09:00 Dose: 4 mg Enoxaparin Sodium (Lovenox) 40 mg SUBCUT DAILY [facility] Last Admin: 11/09/16 08:39 Dose: 40 mg Sodium Chloride (Normal Saline) 1,000 mls @ 500 mls/hr IV ASDIRECTED [facility] Last Admin: 11/08/16 10:37 Dose: 500 mls/hr Potassium Chloride/Dextrose/Sod Cl (D5 Ns With 20 Meq Kcl) 1,000 mls @ 125 mls/ hr IV ASDIRECTED [facility] Last Admin: 11/09/16 06:54 Dose: 125 mls/hr Fluconazole/Sodium Chloride (200 mg/ Premix) 100 mls @ 100 mls/hr IV Q24H [facility] Stop: 11/09/16 13:59 Last Admin: 11/09/16 12:49 Dose: 100 mls/hr Oxycodone HCl (Oxycodone) 5 mg PO Q4H PRN PRN Reason: Pain (moderate 4-6) Last Admin: 11/11/16 10:18 Dose: 5 mg - Exam General: alert, oriented, cooperative, no acute distress Lungs: Clear to auscultation, Normal respiratory effort Cardiovascular: Regular Rate, Regular Rhythm, No Murmurs Abdomen: bowel sounds present, soft, no tenderness, no distension Neurological: other (Persistent weakness left upper and lower extremities) - Problem List Review Problem List Initiated/Reviewed/Updated: Yes - My Orders Last 24 Hours: My Active Orders 11/15/16 05:00 CBC WITH AUTO DIFF [HEME] Timed - Plan Plan:: Assessment and plan - Glioblastoma with increased cerebral edema - she is status post chemotherapy and radiation to her brain. Reviewed current condition with her oncologist at the [facility] in [place], he has recommended further therapy with Avastin. -Avastin 7.5 mg/kg IV infusion, continue to work towards facilitating this infusion over the next few days -dexamethasone 4 mg by mouth q6 hours -Continue seizure prophylaxis -Oxycodone 10 mg by mouth every 4 hours as needed for headache Pancytopenia - secondary to recent chemotherapy. She continues to have an absolute neutrophilia although total white count now has improved to 1200. Following transfusion of 1 unit of platelets yesterday her platelet count is up to 74,000 -Start antibiotics empirically if she has a fever -Blood and urine cultures if she has a fever -Repeat labs in the morning Maintenance issues - - DVT prophylaxis - mechanical with low platelets - GI prophylaxis - PPI - Nutrition - diet as tolerated - Shook catheter - using straight catheter as needed Disposition - given ongoing significant disability will require skilled nursing placement
[2016-11-14] MEDS: Montelukast 10 MG Tab PO SCH (21:20)
[2016-11-15] MEDS: Dexamethasone 4 MG Tab PO SCH ×2 (03:49→08:47)
[2016-11-15] MEDS: Nystatin Susp 100,000 Unit/ML 5 ML UD Cup PO SCH ×2 (05:17→09:05)
[2016-11-15] MEDS: Carvedilol 3.125 MG Tab PO SCH (07:44)
[2016-11-15] MEDS: Pantoprazole 40 MG Tab.CR PO SCH (07:45)
[2016-11-15] MEDS: DULoxetine 30 MG Cap PO SCH (08:47)
[2016-11-15] MEDS: Aspirin 81 MG Tab.Chew PO SCH (08:47)
[2016-11-15] MEDS: levETIRAcetam 250 MG Tab PO SCH (08:48)
[2016-11-15] MEDS: atorvaSTATin 20 MG Tab PO SCH (08:49)
[2016-11-15] MEDS: Cyanocobalamin (Vitamin B12) 1,000 MCG Tab PO SCH (08:49)
[2016-11-15 10:40] VITALS: BP 114/74
[2016-11-15] MEDS: oxyCODONE 5 MG Tab PO PRN (10:43)
--- NOTE | 2016-11-15 12:52 | PCM.DCSUM1 ---
Discharge Summary - Hospital Course Brief History: This patient is a 56-year-old woman with a known history of cerebral glioblastoma status post recent radiation therapy and chemotherapy. She was admitted with progressive weakness that developed to the point that she was unable to get out of bed. - Discharge Data Discharge Date: 11/15/16 Discharge Disposition: DC/Tfer to SNF 03 Condition: Poor - Discharge Diagnosis/Problem(s) (1) Pancytopenia SNOMED Code(s): 130925744 ICD Code: D61.818 - OTHER PANCYTOPENIA Status: Acute Current Visit: Yes (2) Neutropenia SNOMED Code(s): 638278933 ICD Code: D70.9 - NEUTROPENIA, UNSPECIFIED Status: Acute Current Visit: Yes (3) Glioblastoma SNOMED Code(s): 516616343, 16699929, 695358657 ICD Code: C71.9 - MALIGNANT NEOPLASM OF BRAIN, UNSPECIFIED Status: Acute Current Visit: Yes (4) Cerebral edema SNOMED Code(s): 1139841 ICD Code: G93.6 - CEREBRAL EDEMA Status: Acute Current Visit: Yes (5) Mental status change SNOMED Code(s): 493551285 ICD Code: R41.82 - ALTERED MENTAL STATUS, UNSPECIFIED Status: Acute Current Visit: Yes Qualifiers: Altered mental status type: somnolence Qualified Code(s): R40.0 - Somnolence (6) Seizure disorder SNOMED Code(s): 673611427 ICD Code: G40.909 - EPILEPSY, UNSP, NOT INTRACTABLE, WITHOUT STATUS EPILEPTICUS Status: Acute Current Visit: No - Patient Summary/Data Consults: Consultations 11/11/16 10:34 Consult to Occupational Therapy [OT Evaluation and Treatment] [CONS] Routine Please Evaluate and Treat. OT Reason for Consult: Other (Type Response) Special Instructions: Brain tumor, weakness This query below is only for informational purposes and is not editable. Admission Diagnosis/Problem: Glioblastoma PT Evaluation and Treatment [CONS] Routine Please Evaluate and Treat. PT Reason for Consult: Strengthening This query below is only for informational purposes and is not editable. Admission Diagnosis/Problem: Glioblastoma Hospital Course: This patient is a 56-year-old woman with a known history of glioblastoma involving the right cerebral hemisphere. She did receive recent chemotherapy and radiation therapy at the [facility] in [place]. After arriving home progressively became more weak to the point that she was unable to function or even get out of bed. She was brought into the emergency department for further evaluation and management. CT scan of the head showed significant cerebral edema and she was started on IV Decadron 4 mg IV every 6 hours. On admission to the hospital she was given IV fluids for hydration and within the first 24 hours experiencing significant improvement in her weakness. She continued to experience left upper and lower extremity weakness but this was markedly improved compared to what she did experience prior to admission. Findings were reviewed with her oncologist at the [facility] in [place] and they recommended transitioning to oral dexamethasone 4 mg every 12 hours. Recommendation was also made to proceed with Avastin infusion to help manage the vasogenic edema. We attempted to facilitate that at infusion. The hospital or shortly after discharge for were unsuccessful. She will be scheduled for appointment with oncology at [facility] in [place] to consider Avastin infusion. Hospital course was complicated by headache, this was well managed by increasing her dose of oxycodone to 10 mg every 4 hours as needed. She also had severe pancytopenia including a white blood cell count of 500 and platelets of 9000. By the time of discharge her white cell count was up to 1500 and her platelet count was above 70,000. She did receive transfusion of 1 unit of platelets 2 days prior to discharge. She will be on her usual diet and activity will be as tolerated. Will obtain a follow-up CBC in 4 days at the halfway. Follow-up with primary care will be at the halfway, appointment with oncology as noted above, she already has appointment pending on 22 November at the [facility] in [place]. - Patient Instructions Diet: Usual Diet as Tolerated Activity: As Tolerated Other/Special Instructions: Discharge to halfway with daily physical therapy and occupational therapy. Follow-up with primary care as needed at the halfway. Patient already has appointment scheduled for follow-up at the [facility] later in October. Please schedule appointment with [facility] oncology as soon as possible to consider Avastin infusion. - Discharge Plan Prescriptions/Med Rec: Dexamethasone 4 mg PO Q12H #60 tablet oxyCODONE 10 mg PO Q4H PRN #40 tablet PRN Reason: Pain Home Medications: Home Meds RABEprazole Sodium [Aciphex] 1 tab PO DAILY 08/08/16 [History] buPROPion [Wellbutrin] 1 tab PO BID 08/08/16 [History] Aspirin 81 mg PO DAILY 08/22/16 [History] Carvedilol 3.125 mg PO BID 08/22/16 [History] Cyanocobalamin (Vitamin B-12) [B-12] 1,000 mcg PO DAILY 08/22/16 [History] Multivitamin [Multivitamins] 1 tab PO DAILY 08/22/16 [History] Potassium 20 meq PO DAILY 08/22/16 [History] Vitamin B Complex [B Complex] 1 tab PO DAILY 08/22/16 [History] atorvaSTATin [Lipitor] 40 mg PO DAILY 08/22/16 [History] levETIRAcetam [Keppra] 1,000 mg PO BID 08/22/16 [History] DULoxetine [Cymbalta] 30 mg PO WITHBREAKFAST 10/29/16 [History] diphenhydrAMINE [Benadryl] 50 mg PO ASDIRECTED 10/29/16 [History] DULoxetine HCl [Cymbalta] 60 mg PO BEDTIME 11/08/16 [History] Dexamethasone 4 mg PO Q12H #60 tablet 11/15/16 [Rx] oxyCODONE 10 mg PO Q4H PRN #40 tablet 11/15/16 [Rx] Referrals: Claudia March PA [Primary Care Provider] - - Patient Data Vitals - Most Recent: Last Vital Signs Temp 97.3 F 11/15/16 10:35 Pulse 76 11/15/16 10:35 Resp 18 11/15/16 10:35 BP 114/74 11/15/16 10:35 Pulse Ox 96 11/15/16 10:35 Weight - Most Recent: 133 lb I&O - Last 24 hours: Intake & Output 11/14/16 11/15/16 11/15/16 22:59 06:59 14:59 Intake Total 400 Output Total 500 600 Balance -500 -600 400 Lab Results - Last 24 hrs: Laboratory Results - last 24 hr 11/15/16 Range/Units 05:53 WBC 1.5 L (4.5-11.0) K/uL RBC 3.29 L (3.30-5.50) M/uL Hgb 9.3 L (12.0-15.0) g/dL Hct 27.2 L (36.0-48.0) % MCV 83 (80-98) fL MCH 28 (27-31) pg MCHC 34 (32-36) % Plt Count 75 L (150-400) K/uL Neut % (Auto) 26 L (36-66) % Lymph % (Auto) 63 H (24-44) % [place] % (Auto) 11 H (2-6) % Eos % (Auto) 0 L (2-4) % Baso % (Auto) 0 (0-1) % Med Orders - Current: Current Medications Acetaminophen (Tylenol) 650 mg PO Q4H PRN PRN Reason: Pain (Mild 1-3)/fever Last Admin: 11/11/16 07:24 Dose: 650 mg Al Hydroxide/Mg Hydroxide (Mag-Al Plus) 30 ml PO Q4H PRN PRN Reason: Heartburn Last Admin: 11/09/16 20:24 Dose: 30 ml Aspirin (Aspirin) 81 mg PO DAILY [facility] Last Admin: 11/15/16 08:47 Dose: 81 mg Atorvastatin Calcium (Lipitor) 40 mg PO DAILY [facility] Last Admin: 11/15/16 08:49 Dose: 40 mg Bisacodyl (Dulcolax) 5 mg PO DAILY PRN PRN Reason: Constipation Last Admin: 11/13/16 10:58 Dose: 5 mg Bupropion HCl (Wellbutrin) 75 mg PO BID [facility] Last Admin: 11/15/16 08:50 Dose: 75 mg Carvedilol (Coreg) 3.125 mg PO BIDMEALS [facility] Last Admin: 11/15/16 07:44 Dose: 3.125 mg Lidocaine HCl 30 ml/ Al Hydroxide/Mg Hydroxide 30 ml/Diphenhydramine HCl 75 mg 0 ml PO Q4H PRN PRN Reason: MOUTH CARE Last Admin: 11/13/16 18:33 Dose: 15 ml Cyanocobalamin (Vitamin B12) 1,000 mcg PO DAILY [facility] Last Admin: 11/15/16 08:49 Dose: 1,000 mcg Dexamethasone (Dexamethasone) 4 mg PO Q6H [facility] Last Admin: 11/15/16 08:47 Dose: 4 mg Diphenhydramine HCl (Benadryl) 25 mg PO Q6H PRN PRN Reason: Itching Duloxetine HCl (Cymbalta) 30 mg PO DAILY [facility] Last Admin: 11/15/16 08:47 Dose: 30 mg Duloxetine HCl (Cymbalta) 60 mg PO BEDTIME [facility] Last Admin: 11/14/16 21:20 Dose: 60 mg Levetiracetam (Keppra) 1,000 mg PO BID [facility] Last Admin: 11/15/16 08:48 Dose: 1,000 mg Lorazepam (Ativan) 0.5 - 1 mg IVPUSH Q4H PRN PRN Reason: Nausea/Vomiting Magnesium Hydroxide (Milk Of Magnesia) 30 ml PO Q12H PRN PRN Reason: Constipation Last Admin: 11/13/16 10:58 Dose: 30 ml Montelukast Sodium (Singulair) 10 mg PO BEDTIME [facility] Last Admin: 11/14/16 21:20 Dose: 10 mg Nystatin (Mycostatin) 5 ml PO QID [facility] Last Admin: 11/15/16 09:05 Dose: 5 ml Ondansetron HCl (Zofran Odt) 4 mg PO Q6H PRN PRN Reason: Nausea able to take PO Ondansetron HCl (Zofran) 4 mg IVPUSH Q6H PRN PRN Reason: Nausea/Vomiting Oxycodone HCl (Oxycodone) 10 mg PO Q4H PRN PRN Reason: Pain (moderate 4-6) Last Admin: 11/15/16 10:43 Dose: 10 mg Pantoprazole Sodium (Protonix) 40 mg PO ACBREAKFAST [facility] Last Admin: 11/15/16 07:45 Dose: 40 mg Polyethylene Glycol (Miralax) 17 gm PO DAILY PRN PRN Reason: Constipation Last Admin: 11/13/16 07:43 Dose: 17 gm Senna/Docusate Sodium (Senna Plus) 1 tab PO BID PRN PRN Reason: Constipation Last Admin: 11/14/16 07:30 Dose: 1 tab Discontinued Medications Bisacodyl (Dulcolax) 10 mg RECTAL ONETIME ONE Stop: 11/13/16 11:01 Last Admin: 11/13/16 11:23 Dose: 10 mg Dexamethasone (Dexamethasone) 4 mg IVPUSH ONETIME ONE Stop: 11/08/16 11:19 Last Admin: 11/08/16 11:34 Dose: 4 mg Dexamethasone (Dexamethasone) 4 mg IVPUSH Q12H [facility] Last Admin: 11/11/16 08:35 Dose: 4 mg Dexamethasone (Dexamethasone) 4 mg PO BID [facility] Last Admin: 11/12/16 09:00 Dose: 4 mg Enoxaparin Sodium (Lovenox) 40 mg SUBCUT DAILY [facility] Last Admin: 11/09/16 08:39 Dose: 40 mg Sodium Chloride (Normal Saline) 1,000 mls @ 500 mls/hr IV ASDIRECTED [facility] Last Admin: 11/08/16 10:37 Dose: 500 mls/hr Potassium Chloride/Dextrose/Sod Cl (D5 Ns With 20 Meq Kcl) 1,000 mls @ 125 mls/ hr IV ASDIRECTED [facility] Last Admin: 11/09/16 06:54 Dose: 125 mls/hr Fluconazole/Sodium Chloride (200 mg/ Premix) 100 mls @ 100 mls/hr IV Q24H [facility] Stop: 11/09/16 13:59 Last Admin: 11/09/16 12:49 Dose: 100 mls/hr Oxycodone HCl (Oxycodone) 5 mg PO Q4H PRN PRN Reason: Pain (moderate 4-6) Last Admin: 11/11/16 10:18 Dose: 5 mg *Q Meaningful Use (DIS) - VTE *Q VTE Criteria *Q: - Stroke *Q Stroke Criteria *Q: - AMI *Q AMI Criteria *Q:
== END 2016-11-15 13:00 | DRG 54 ==
LOC: JP.ED 09:25 → JP.MS 12:33 → EEVIPCON 12:33
PROVIDERS: ADMIT Internal Medicine; ATTEND Hospitalist
PROC: 30233R1 Transfusion of Nonautologous Platelets into Peripheral Vein, Percutaneous Approach (ICD-10-PCS; principal; 2016-11-13)
DX: C71.6 Malignant neoplasm of cerebellum (principal); G93.6 Cerebral edema; D61.810 Antineoplastic chemotherapy induced pancytopenia; R53.1 Weakness; Z66 Do not resuscitate; F17.210 Nicotine dependence, cigarettes, uncomplicated; Z86.718 Personal history of other venous thrombosis and embolism; E78.00 Pure hypercholesterolemia, unspecified; Z87.440 Personal history of urinary (tract) infections; G40.909 Epilepsy, unspecified, not intractable, without status epilepticus; Z86.73 Personal history of transient ischemic attack (TIA), and cerebral infarction without residual deficits; F32.9 Major depressive disorder, single episode, unspecified; F41.9 Anxiety disorder, unspecified; R40.0 Somnolence; N31.9 Neuromuscular dysfunction of bladder, unspecified; N39.498 Other specified urinary incontinence; R51 Headache; Z92.21 Personal history of antineoplastic chemotherapy; Z92.3 Personal history of irradiation; Z91.5 Personal history of self-harm; F44.81 Dissociative identity disorder; Z79.82 Long term (current) use of aspirin; Z88.5 Allergy status to narcotic agent; Z88.8 Allergy status to other drugs, medicaments and biological substances
CPT/HCPCS: 36415; 36430; 70450; 70450-26; 80048; 80053; 81001; 82803; 85025; 96361; 96365; 96366; 96375; 97110-GO; 97110-GP; 97112-GP; 97116-GP; 97140-GP; 97162-GP; 97165-GO; 97530-GP; 97535-GP; 99285-25; A9270-GY; J1100; J1450; J1650; J3480; J7040; J8540; P9034

== ENCOUNTER 2017-01-21 10:15 | Emergency (ER) | payer OTHER ==
--- NOTE | 2017-01-21 11:31 | EDM.PDOC ---
ED HPI GENERAL MEDICAL PROBLEM - General Chief Complaint: General Stated Complaint: SHORT OF BREATH Time Seen by Provider: 01/21/17 11:31 Source of Information: Reports: Patient History Limitations: Reports: No Limitations - History of Present Illness INITIAL COMMENTS - FREE TEXT/NARRATIVE: pt has been very sob and she has been extremely fatiqued. She had lab work this am and she was found to have a hg of 7. Will plan to give a unit of blood today. Her numbers will be faxed to [facility] and they will get back to us regarding whether she will need platlets/ Onset: Gradual Duration: Hour(s):, Other ( Pt is having some panicy feeling. ) Location: Reports: Generalized Associated Symptoms: Reports: Shortness of Breath - Related Data Allergies Allergy/AdvReac Type Severity Reaction Status Date / Time bacitracin Allergy Rash Verified 01/23/17 13:03 morphine Allergy Rash Verified 01/23/17 13:03 Home Meds: Home Meds RABEprazole Sodium [Aciphex] 1 tab PO DAILY 08/08/16 [History] buPROPion [Wellbutrin] 1 tab PO BID 08/08/16 [History] Aspirin 81 mg PO DAILY 08/22/16 [History] Carvedilol 3.125 mg PO BID 08/22/16 [History] Cyanocobalamin (Vitamin B-12) [B-12] 1,000 mcg PO DAILY 08/22/16 [History] Multivitamin [Multivitamins] 1 tab PO DAILY 08/22/16 [History] Potassium 20 meq PO DAILY 08/22/16 [History] Vitamin B Complex [B Complex] 1 tab PO DAILY 08/22/16 [History] atorvaSTATin [Lipitor] 40 mg PO DAILY 08/22/16 [History] levETIRAcetam [Keppra] 1,000 mg PO BID 08/22/16 [History] DULoxetine [Cymbalta] 30 mg PO WITHBREAKFAST 10/29/16 [History] diphenhydrAMINE [Benadryl] 50 mg PO ASDIRECTED 10/29/16 [History] DULoxetine HCl [Cymbalta] 60 mg PO BEDTIME 11/08/16 [History] Dexamethasone 4 mg PO Q12H #60 tablet 11/15/16 [Rx] oxyCODONE 10 mg PO Q4H PRN #40 tablet 11/15/16 [Rx] Past Medical History HEENT History: Reports: Sinusitis Cardiovascular History: Reports: Blood Clots/VTE/DVT, High Cholesterol Respiratory History: Reports: Other (See Below) Other Respiratory History: SIRS Gastrointestinal History: Reports: Chronic Diarrhea, GERD, Other (See Below) Other Gastrointestinal History: lymphocytic colitis Genitourinary History: Reports: Urinary Incontinence, UTI, Recurrent ECHO VASC TECH History: Reports: , Other (See Below) Other OB/BYN History: chronic dysplagia Musculoskeletal History: Reports: Fibromyalgia, Osteoporosis, Other (See Below) Other Musculoskeletal History: right hip dislocation Neurological History: Reports: CVA, Headaches, Chronic, Migraines, Neuropathy, Peripheral, Seizure, Other (See Below) Other Neuro History: gliomas Psychiatric History: Reports: Anxiety, Depression, Psych Hospitalization(s), PTSD, Suicide Attempt Other Psychiatric History: multiple personality disorder Hematologic History: Reports: Blood Transfusion(s), Other (See Below) Other Hematologic History: platelet transfusion Immunologic History: Reports: Immunosuppression Oncologic (Cancer) History: Reports: Other (See Below) Other Oncologic History: glioblastoma Dermatologic History: Reports: Other (See Below) Other Dermatologic History: chronic puritis - Infectious Disease History Infectious Disease History: Reports: Chicken Pox, Mumps - Past Surgical History HEENT Surgical History: Reports: Other (See Below) Other HEENT Surgeries/Procedures: cyst removal on neck, hyoid bone removal, amblyopia Cardiovascular Surgical History: Reports: Other (See Below) Other Cardiovascular Surgeries/Procedures: loop monitor implant GI Surgical History: Reports: Cholecystectomy Female Surgical History: Reports: Hysterectomy Neurological Surgical History: Reports: Other (See Below) Other Neurological Surgeries/Procedures: craniotomy Musculoskeletal Surgical History: Reports: Other (See Below) Other Musculoskeletal Surgeries/Procedures:: crainiotomy Social & Family History - Tobacco Use Smoking Status *Q: Heavy Tobacco Smoker Years of Tobacco use: 45 Packs/Tins Daily: 1 Used Tobacco, but Quit: Yes Month Tobacco Last Used: July Second Hand Smoke Exposure: No - Caffeine Use Caffeine Use: Reports: Coffee - Alcohol Use Days Per Week of Alcohol Use: 0 - Recreational Drug Use Recreational Drug Use: No Drug Use in Last 12 Months: Yes Recreational Drug Type: Reports: Marijuana/Hashish Recreational Drug Use Frequency: Daily ED ROS GENERAL - Review of Systems Review Of Systems: See Below Constitutional: Reports: No Symptoms HEENT: Reports: No Symptoms Respiratory: Reports: Shortness of Breath, Other (pt does do some hyperventilation) Cardiovascular: Reports: Dyspnea on Exertion Endocrine: Reports: No Symptoms GI/Abdominal: Reports: No Symptoms : Reports: No Symptoms ED EXAM, GENERAL - Physical Exam Exam: See Below Free Text/Narrative:: pt has a history of a glioblastoma and she has had some very low platlet counts from her therapy. Exam Limited By: No Limitations General Appearance: Alert, Anxious Ears: Normal TMs Nose: Normal Inspection Throat/Mouth: Normal Inspection Neck: Normal Inspection Respiratory/Chest: No Respiratory Distress Cardiovascular: Regular Rate, Rhythm, Tachycardia GI/Abdominal: Soft, Non-Tender, Other ( appetite has been good. ) Rectal (Female) Exam: Deferred Back Exam: Normal Inspection Extremities: Normal Inspection, Other ( alot of bruising present. ) Neurological: Alert, Oriented, Normal Cognition Psychiatric: Normal Affect Course - Vital Signs Last Recorded V/S: Last Vital Signs Temp 37.2 C 01/21/17 16:40 Pulse 91 01/21/17 16:40 Resp 18 01/21/17 16:40 BP 113/70 01/21/17 16:40 Pulse Ox 99 01/21/17 10:38 - Orders/Labs/Meds Labs: Laboratory Tests 01/21/17 01/21/17 Range/Units 10:15 11:29 Sodium 137 L (140-148) mmol/L Potassium 3.6 (3.6-5.2) mmol/L Chloride 103 (100-108) mmol/L Carbon Dioxide 21 (21-32) mmol/L Anion Gap 16.6 H (5.0-14.0) mmol/L BUN 22 H (7-18) mg/dL Creatinine 0.8 (0.6-1.0) mg/dL Est Cr Clr Drug Dosing 70.54 mL/min Estimated GFR (MDRD) > 60 (>60) Glucose 143 H (74-106) mg/dL Calcium 8.2 L (8.5-10.1) mg/dL Total Bilirubin 0.4 (0.2-1.0) mg/dL AST 16 (15-37) U/L ALT 49 (12-78) U/L Alkaline Phosphatase 87 (46-116) U/L Total Protein 6.5 (6.4-8.2) g/dL Albumin 2.8 L (3.4-5.0) g/dL Globulin 3.7 H (2.3-3.5) g/dL Albumin/Globulin Ratio 0.8 L (1.2-2.2) Blood Type A POSITIVE Gel Antibody Screen Negative Crossmatch See Detail Meds: Medications Discontinued Medications Generic Name Dose Route Start Last Admin Trade Name Freq PRN Reason Stop Dose Admin Sodium Chloride 1,000 mls @ 0 mls/hr 01/21/17 14:45 01/21/17 14:00 Normal Saline IV 25 mls/hr ASDIRECTED ELLA Administration KVO - Re-Assessments/Exams Free Text/Narrative Re-Assessment/Exam: 01/21/17 13:14 will plan to give 1 unit of packed cells and see what [facility] wants to do regarding the platlets. Departure - Departure Time of Disposition: 16:40 Disposition: Home, Self-Care 01 Condition: Fair Clinical Impression: Drug-induced low platelet count, Anemia, Glioblastoma - Discharge Information Referrals: Claudia March PA [Primary Care Provider] - Forms: ED Department Discharge Care Plan Goals: to outpt to be tranfused with 1 unit of packed cells. Nieto will get back to us regarding whether platlets should be given or not. Her lab work was faxed to [facility].
--- NOTE | 2017-01-21 12:35 | CR ---
Chest 1V Frontal INDICATION: sob FINDINGS: Emphysematous changes in the upper lobes. AP portable chest x-ray otherwise negative.
[2017-01-21] MEDS: Sodium Chloride 0.9% 1,000 ML IV SCH (14:00)
[2017-01-21 16:46] VITALS: BP 113/70
[2017-01-22] MEDS: Sodium Chloride 0.9% 1,000 ML IV SCH (06:40)
== END 2017-01-23 13:55 | disposition home or self-care (01) ==
LOC: JP.ED 10:15
DX: D69.59 Other secondary thrombocytopenia (principal); D64.9 Anemia, unspecified; C71.9 Malignant neoplasm of brain, unspecified; E78.00 Pure hypercholesterolemia, unspecified; K21.9 Gastro-esophageal reflux disease without esophagitis; M81.0 Age-related osteoporosis without current pathological fracture; F32.9 Major depressive disorder, single episode, unspecified; F43.10 Post-traumatic stress disorder, unspecified; Z90.49 Acquired absence of other specified parts of digestive tract; Z90.710 Acquired absence of both cervix and uterus; Z98.890 Other specified postprocedural states; Z87.891 Personal history of nicotine dependence; Z86.718 Personal history of other venous thrombosis and embolism; Z79.899 Other long term (current) drug therapy; Z79.82 Long term (current) use of aspirin; Z88.1 Allergy status to other antibiotic agents; Z88.5 Allergy status to narcotic agent
CPT/HCPCS: 36415; 36430; 71010; 80053; 85025; 86850; 86900; 86901; 86920; 86922; 99285; J7040; P9016; P9034

== ENCOUNTER 2017-01-31 19:13 | Emergency (ER) | payer OTHER ==
[2017-01-31] MEDS ORDERED: Sodium Chloride 0.9% 100 ML ONE (19:27)
[2017-01-31] MEDS ORDERED: Lactated Ringers 1,000 ML IV SCH (19:30)
[2017-01-31] MEDS ORDERED: Piperacillin/Tazobactam 4.5 GM in Sodium Chloride 0.9% 100 ML IV SCH (19:30)
[2017-01-31] MEDS ORDERED: Dexamethasone 4 MG/ML SDV IVPUSH ONE (19:31)
--- NOTE | 2017-01-31 19:40 | EDM.PDOC ---
ED HPI GENERAL MEDICAL PROBLEM - General Chief Complaint: General Stated Complaint: MED [facility] Time Seen by Provider: 01/31/17 19:16 Source of Information: Reports: Patient, EMS, Old Records, RN Notes Reviewed History Limitations: Reports: Altered Mental Status - History of Present Illness INITIAL COMMENTS - FREE TEXT/NARRATIVE: 56-year-old female presents emergency department today via EMS services, she is a known history of glioblastoma via biopsy follows with oncology [facility]. By EMS report last couple of days she has progressively gotten weaker had recently been tapered off her steroid use, family members initially not available at the time of this record majority this was taken from EMS and chart review. On scene she was found to be hypotensive, hypoxic and mottling with fluids and oxygen she did respond upon arrival to the ED she is noncommunicative but will follow commands GCS of 12 Denies Pain Score (Numeric/FACES): 0 - Related Data Allergies Allergy/AdvReac Type Severity Reaction Status Date / Time bacitracin Allergy Rash Verified 01/31/17 19:33 morphine Allergy Rash Verified 01/31/17 19:33 Home Meds: Home Meds RABEprazole Sodium [Aciphex] 1 tab PO DAILY 08/08/16 [History] buPROPion [Wellbutrin] 1 tab PO BID 08/08/16 [History] Aspirin 81 mg PO DAILY 08/22/16 [History] Carvedilol 3.125 mg PO BID 08/22/16 [History] Cyanocobalamin (Vitamin B-12) [B-12] 1,000 mcg PO DAILY 08/22/16 [History] Multivitamin [Multivitamins] 1 tab PO DAILY 08/22/16 [History] Potassium 20 meq PO DAILY 08/22/16 [History] Vitamin B Complex [B Complex] 1 tab PO DAILY 08/22/16 [History] atorvaSTATin [Lipitor] 40 mg PO DAILY 08/22/16 [History] levETIRAcetam [Keppra] 1,000 mg PO BID 08/22/16 [History] DULoxetine [Cymbalta] 30 mg PO WITHBREAKFAST 10/29/16 [History] diphenhydrAMINE [Benadryl] 50 mg PO ASDIRECTED 10/29/16 [History] DULoxetine HCl [Cymbalta] 60 mg PO BEDTIME 11/08/16 [History] Dexamethasone 4 mg PO Q12H #60 tablet 11/15/16 [Rx] oxyCODONE 10 mg PO Q4H PRN #40 tablet 11/15/16 [Rx] Past Medical History HEENT History: Reports: Sinusitis Cardiovascular History: Reports: Blood Clots/VTE/DVT, High Cholesterol Respiratory History: Reports: Other (See Below) Other Respiratory History: SIRS Gastrointestinal History: Reports: Chronic Diarrhea, GERD, Other (See Below) Other Gastrointestinal History: lymphocytic colitis Genitourinary History: Reports: Urinary Incontinence, UTI, Recurrent 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: , Other (See Below) Other OB/BYN History: chronic dysplagia Musculoskeletal History: Reports: Fibromyalgia, Osteoporosis, Other (See Below) Other Musculoskeletal History: right hip dislocation Neurological History: Reports: CVA, Headaches, Chronic, Migraines, Neuropathy, Peripheral, Seizure, Other (See Below) Other Neuro History: gliomas Psychiatric History: Reports: Anxiety, Depression, Psych Hospitalization(s), PTSD, Suicide Attempt Other Psychiatric History: multiple personality disorder Hematologic History: Reports: Blood Transfusion(s), Other (See Below) Other Hematologic History: platelet transfusion Immunologic History: Reports: Immunosuppression Oncologic (Cancer) History: Reports: Other (See Below) Other Oncologic History: glioblastoma Dermatologic History: Reports: Other (See Below) Other Dermatologic History: chronic puritis - Infectious Disease History Infectious Disease History: Reports: Chicken Pox, Mumps - Past Surgical History HEENT Surgical History: Reports: Other (See Below) Other HEENT Surgeries/Procedures: cyst removal on neck, hyoid bone removal, amblyopia Cardiovascular Surgical History: Reports: Other (See Below) Other Cardiovascular Surgeries/Procedures: loop monitor implant GI Surgical History: Reports: Cholecystectomy Female Surgical History: Reports: Hysterectomy Neurological Surgical History: Reports: Other (See Below) Other Neurological Surgeries/Procedures: craniotomy Musculoskeletal Surgical History: Reports: Other (See Below) Other Musculoskeletal Surgeries/Procedures:: crainiotomy Social & Family History - Tobacco Use Smoking Status *Q: Heavy Tobacco Smoker Years of Tobacco use: 45 Packs/Tins Daily: 1 Used Tobacco, but Quit: Yes Month Tobacco Last Used: July Second Hand Smoke Exposure: No - Caffeine Use Caffeine Use: Reports: Coffee - Alcohol Use Days Per Week of Alcohol Use: 0 - Recreational Drug Use Recreational Drug Use: No Drug Use in Last 12 Months: Yes Recreational Drug Type: Reports: Marijuana/Hashish Recreational Drug Use Frequency: Daily ED ROS GENERAL - Review of Systems Review Of Systems: Unable To Obtain ED EXAM, GENERAL - Physical Exam Exam: See Below Free Text/Narrative:: General: Female, minimally responsive GCS of 12, HEENT: head is atraumatic , eyes pupils equal round reactive to light, sclera clear no conjunctivitis appreciated. Ears tympanic membranes clear and duarte landmarks and light reflex are present bilaterally canals are clear. Nose no septal deviation, nares are clear, no blood present. Mouth mucosa is dry and pink no erythema or exudate noted in soft palate, tongue is midline uvula is midline, dentition is intact. Neck: Supple no thyromegaly no tracheal deviation. Nodes: Cervical nodes subclavicular nodes nontender no palpable lymphadenopathy noted. Lungs: Breath sounds are distant on appreciate any adventitious noises CV: Tachycardic rate and rhythm S1 and S2 appreciated no murmurs rubs or gallops noted. Abdomen: Soft, nontender, no palpable masses or organomegaly appreciated, no distention no guarding bowel sounds are present, Neuro: Cranial nerves II through XII grossly intact Skin: mottling is appreciated on lower extremities and upper extremities as well. Extremities: No lower extremity edema appreciated, pedal pulse is +2. Course - Vital Signs Last Recorded V/S: Last Vital Signs Temp 99.6 F 01/31/17 20:02 Pulse 92 01/31/17 21:19 Resp 18 01/31/17 20:21 BP 134/66 01/31/17 21:19 Pulse Ox 100 01/31/17 21:19 - Orders/Labs/Meds Orders: Active Orders 24 hr Category Date Time Status EKG Documentation Completion [RC] ASDIRECTED Care 01/31/17 19:27 Active Shook Catheter Insertion [Insert Urinary Catheter] [OM. Care 01/31/17 21:00 Ordered PC] Q24H Urinary Catheter Assessment [RC] ASDIRECTED Care 01/31/17 20:49 Active Vital Signs [RC] Q1H Care 01/31/17 19:17 Active Chest 1V Frontal [CR] Urgent Exams 01/31/17 19:26 Taken Head wo Cont [CT] Stat Exams 01/31/17 19:31 Taken CULTURE BLOOD [BC] Urgent Lab 01/31/17 19:20 Received CULTURE BLOOD [BC] Urgent Lab 01/31/17 19:30 Received RED BLOOD CELLS LP [BBK] Stat Lab 01/31/17 19:32 Results TYPE AND SCREEN [BBK] Stat Lab 01/31/17 19:32 Results Lactated Ringers [Ringers, Lactated] 1,000 ml Med 01/31/17 19:30 Active IV ASDIRECTED Piperacillin/Tazobactam [Zosyn] 4.5 gm Med 01/31/17 19:30 Active Sodium Chloride 0.9% [Normal Saline] 100 ml IV Q6H Blood Culture x2 Reflex Set [OM.PC] Urgent Oth 01/31/17 19:17 Ordered EKG 12 Lead [EK] Stat Ther 01/31/17 19:27 Ordered Medication Orders Lactated Ringer's (Ringers, Lactated) 1,000 mls @ 999 mls/hr IV ASDIRECTED ELLA Last Admin: 01/31/17 19:37 Dose: 999 mls/hr Piperacillin Sod/Tazobactam (Sod 4.5 gm/ Sodium Chloride) 100 mls @ 200 mls/hr IV Q6H ELLA Last Admin: 01/31/17 19:39 Dose: 200 mls/hr Labs: Laboratory Tests 01/31/17 01/31/17 01/31/17 Range/Units 19:17 19:17 19:17 WBC 3.7 L (4.5-11.0) K/uL RBC 2.02 L (3.30-5.50) M/uL Hgb 6.9 L* (12.0-15.0) g/dL Hct 20.8 L (36.0-48.0) % MCV 103 H (80-98) fL MCH 34 H (27-31) pg MCHC 33 (32-36) % Plt Count 23 L* (150-400) K/uL Neut % (Auto) 46 (36-66) % Lymph % (Auto) 45 H (24-44) % [place] % (Auto) 9 H (2-6) % Eos % (Auto) 0 L (2-4) % Baso % (Auto) 0 (0-1) % PT (9.5-12.0) sec INR (0.80-1.20) Sodium 136 L (140-148) mmol/L Potassium 3.6 (3.6-5.2) mmol/L Chloride 104 (100-108) mmol/L Carbon Dioxide 23 (21-32) mmol/L Anion Gap 12.6 (5.0-14.0) mmol/L BUN 11 (7-18) mg/dL Creatinine 0.7 (0.6-1.0) mg/dL Est Cr Clr Drug Dosing 80.62 mL/min Estimated GFR (MDRD) > 60 (>60) Glucose 96 (74-106) mg/dL Lactic Acid 1.0 (0.4-2.0) mmol/L Calcium 7.9 L (8.5-10.1) mg/dL Total Bilirubin 0.6 (0.2-1.0) mg/dL AST 17 (15-37) U/L ALT 35 (12-78) U/L Alkaline Phosphatase 74 (46-116) U/L Troponin I (0.000-0.056) ng/mL C-Reactive Protein 3.29 H (0.0-0.3) mg/dL NT-Pro-B Natriuret Pep (5-125) pg/mL Total Protein 6.7 (6.4-8.2) g/dL Albumin 2.6 L (3.4-5.0) g/dL Globulin 4.1 H (2.3-3.5) g/dL Albumin/Globulin Ratio 0.6 L (1.2-2.2) Urine Color Urine Appearance Urine pH (4.5-8.0) Ur Specific [place] (1.008-1.030) Urine Protein (NEGATIVE) mg/dL Urine Glucose (UA) (NEGATIVE) mg/dL Urine Ketones (NEGATIVE) mg/dL Urine Occult Blood (NEGATIVE) Urine Nitrite (NEGATIVE) Urine Bilirubin (NEGATIVE) Urine Urobilinogen (NORMAL) mg/dL Ur Leukocyte Esterase (NEGATIVE) Urine RBC (0-5) Urine WBC (0-5) Ur Epithelial Cells Amorphous Sediment Urine Bacteria Urine Mucus Blood Type Gel Antibody Screen Crossmatch 01/31/17 01/31/17 01/31/17 Range/Units 19:30 19:30 19:30 WBC (4.5-11.0) K/uL RBC (3.30-5.50) M/uL Hgb (12.0-15.0) g/dL Hct (36.0-48.0) % MCV (80-98) fL MCH (27-31) pg MCHC (32-36) % Plt Count (150-400) K/uL Neut % (Auto) (36-66) % Lymph % (Auto) (24-44) % [place] % (Auto) (2-6) % Eos % (Auto) (2-4) % Baso % (Auto) (0-1) % PT 9.9 (9.5-12.0) sec INR 0.93 (0.80-1.20) Sodium (140-148) mmol/L Potassium (3.6-5.2) mmol/L Chloride (100-108) mmol/L Carbon Dioxide (21-32) mmol/L Anion Gap (5.0-14.0) mmol/L BUN (7-18) mg/dL Creatinine (0.6-1.0) mg/dL Est Cr Clr Drug Dosing mL/min Estimated GFR (MDRD) (>60) Glucose (74-106) mg/dL Lactic Acid (0.4-2.0) mmol/L Calcium (8.5-10.1) mg/dL Total Bilirubin (0.2-1.0) mg/dL AST (15-37) U/L ALT (12-78) U/L Alkaline Phosphatase (46-116) U/L Troponin I < 0.017 (0.000-0.056) ng/mL C-Reactive Protein (0.0-0.3) mg/dL NT-Pro-B Natriuret Pep 81 (5-125) pg/mL Total Protein (6.4-8.2) g/dL Albumin (3.4-5.0) g/dL Globulin (2.3-3.5) g/dL Albumin/Globulin Ratio (1.2-2.2) Urine Color Urine Appearance Urine pH (4.5-8.0) Ur Specific [place] (1.008-1.030) Urine Protein (NEGATIVE) mg/dL Urine Glucose (UA) (NEGATIVE) mg/dL Urine Ketones (NEGATIVE) mg/dL Urine Occult Blood (NEGATIVE) Urine Nitrite (NEGATIVE) Urine Bilirubin (NEGATIVE) Urine Urobilinogen (NORMAL) mg/dL Ur Leukocyte Esterase (NEGATIVE) Urine RBC (0-5) Urine WBC (0-5) Ur Epithelial Cells Amorphous Sediment Urine Bacteria Urine Mucus Blood Type Gel Antibody Screen Crossmatch 01/31/17 01/31/17 Range/Units 19:32 20:57 WBC (4.5-11.0) K/uL RBC (3.30-5.50) M/uL Hgb (12.0-15.0) g/dL Hct (36.0-48.0) % MCV (80-98) fL MCH (27-31) pg MCHC (32-36) % Plt Count (150-400) K/uL Neut % (Auto) (36-66) % Lymph % (Auto) (24-44) % [place] % (Auto) (2-6) % Eos % (Auto) (2-4) % Baso % (Auto) (0-1) % PT (9.5-12.0) sec INR (0.80-1.20) Sodium (140-148) mmol/L Potassium (3.6-5.2) mmol/L Chloride (100-108) mmol/L Carbon Dioxide (21-32) mmol/L Anion Gap (5.0-14.0) mmol/L BUN (7-18) mg/dL Creatinine (0.6-1.0) mg/dL Est Cr Clr Drug Dosing mL/min Estimated GFR (MDRD) (>60) Glucose (74-106) mg/dL Lactic Acid (0.4-2.0) mmol/L Calcium (8.5-10.1) mg/dL Total Bilirubin (0.2-1.0) mg/dL AST (15-37) U/L ALT (12-78) U/L Alkaline Phosphatase (46-116) U/L Troponin I (0.000-0.056) ng/mL C-Reactive Protein (0.0-0.3) mg/dL NT-Pro-B Natriuret Pep (5-125) pg/mL Total Protein (6.4-8.2) g/dL Albumin (3.4-5.0) g/dL Globulin (2.3-3.5) g/dL Albumin/Globulin Ratio (1.2-2.2) Urine Color Yellow Urine Appearance Slightly cloudy Urine pH 6.0 (4.5-8.0) Ur Specific [place] 1.020 (1.008-1.030) Urine Protein Negative (NEGATIVE) mg/dL Urine Glucose (UA) Normal (NEGATIVE) mg/dL Urine Ketones Negative (NEGATIVE) mg/dL Urine Occult Blood Negative (NEGATIVE) Urine Nitrite Negative (NEGATIVE) Urine Bilirubin Negative (NEGATIVE) Urine Urobilinogen 1 (NORMAL) mg/dL Ur Leukocyte Esterase Negative (NEGATIVE) Urine RBC 0-5 (0-5) Urine WBC 0-5 (0-5) Ur Epithelial Cells Few Amorphous Sediment Few Urine Bacteria Moderate Urine Mucus Few Blood Type A POSITIVE Gel Antibody Screen Negative Crossmatch See Detail Meds: Medications Generic Name Dose Route Start Last Admin Trade Name Freq PRN Reason Stop Dose Admin Lactated Ringer's 1,000 mls @ 999 mls/hr 01/31/17 19:30 01/31/17 19:37 Ringers, Lactated IV 999 mls/hr ASDIRECTED ELLA Administration Piperacillin Sod/Tazobactam 100 mls @ 200 mls/hr 01/31/17 19:30 01/31/17 19: 39 Sod 4.5 gm/ Sodium Chloride IV 200 mls/hr Q6H ELLA Administration Discontinued Medications Generic Name Dose Route Start Last Admin Trade Name Freq PRN Reason Stop Dose Admin Dexamethasone 4 mg 01/31/17 19:31 01/31/17 19:44 Dexamethasone IVPUSH 01/31/17 19:32 4 mg ONETIME ONE Administration Sodium Chloride Confirm 01/31/17 19:27 Normal Saline Administered 01/31/17 19:28 Dose 100 mls @ as directed .ROUTE .STK-MED ONE Departure - Departure Time of Disposition: 22:02 Disposition: DC/Tfer to Acute Hospital 02 Condition: Poor Clinical Impression: Glioblastoma of cerebellum Altered mental status Qualifiers: Altered mental status type: coma Coma depth: [place] coma 9-12 Coma timing: at arrival to emergency department Qualified Code(s): R40.2422 - Samuel coma scale score 9-12, at arrival to emergency department - Discharge Information Referrals: PCP,None [Primary Care Provider] - Forms: ED Department Discharge - My Orders Last 24 Hours: My Active Orders 01/31/17 19:17 Vital Signs [RC] Q1H Blood Culture x2 Reflex Set [OM.PC] Urgent 01/31/17 19:20 CULTURE BLOOD [BC] Urgent 01/31/17 19:26 Chest 1V Frontal [CR] Urgent 01/31/17 19:27 EKG Documentation Completion [RC] ASDIRECTED EKG 12 Lead [EK] Stat 01/31/17 19:30 CULTURE BLOOD [BC] Urgent Lactated Ringers [Ringers, Lactated] 1,000 ml IV ASDIRECTED Piperacillin/Tazobactam [Zosyn] 4.5 gm Sodium Chloride 0.9% [Normal Saline] 100 ml IV Q6H 01/31/17 19:31 Head wo Cont [CT] Stat 01/31/17 19:32 RED BLOOD CELLS LP [BBK] Stat TYPE AND SCREEN [BBK] Stat 01/31/17 20:49 Urinary Catheter Assessment [RC] ASDIRECTED 01/31/17 21:00 Shook Catheter Insertion [Insert Urinary Catheter] [OM.PC] Q24H - Assessment/Plan Last 24 Hours: My Active Orders 01/31/17 19:17 Vital Signs [RC] Q1H Blood Culture x2 Reflex Set [OM.PC] Urgent 01/31/17 19:20 CULTURE BLOOD [BC] Urgent 01/31/17 19:26 Chest 1V Frontal [CR] Urgent 01/31/17 19:27 EKG Documentation Completion [RC] ASDIRECTED EKG 12 Lead [EK] Stat 01/31/17 19:30 CULTURE BLOOD [BC] Urgent Lactated Ringers [Ringers, Lactated] 1,000 ml IV ASDIRECTED Piperacillin/Tazobactam [Zosyn] 4.5 gm Sodium Chloride 0.9% [Normal Saline] 100 ml IV Q6H 01/31/17 19:31 Head wo Cont [CT] Stat 01/31/17 19:32 RED BLOOD CELLS LP [BBK] Stat TYPE AND SCREEN [BBK] Stat 01/31/17 20:49 Urinary Catheter Assessment [RC] ASDIRECTED 01/31/17 21:00 Shook Catheter Insertion [Insert Urinary Catheter] [OM.PC] Q24H Plan: Assessment Acuity = acute Site and laterality = altered mental status GCS of 12 complicated in a patient with known history of glioblastoma on chronic steroids dexamethasone Etiology = suspicious for discontinuation of steroids 3 days prior Manifestations = hypotensive, hypoxic Location of injury = Home Lab values = WBC 3.7 consistent leukopenia hemoglobin low at 6.9 consistent with macro chromic anemia platelets low at 23 consistent thrombocytopenia INR normal 0.93 sodium low at 136 consistent hyponatremia troponin normal albumin low at 2.6 consistent hypoalbuminemia urinalysis unremarkable chest x-ray I did review films myself I cannot appreciate any acute process, the official read from radiology is pending, CT scan of the head shows diffuse right hemispheric edema with a right to left shift however this is unchanged from October 2016 Plan Called discussed case with Dr. Sevilla hospitalist instructional design specialist at [facility], kindly accepted the patient in transfer transported via EMS services, we're currently on red alert and have no bed availability Patient was in agreement with the plan all questions were answered, they were instructed to return to the emergency department or call for worsening symptoms. This note was dictated using [employer] voice recognition software please call with any questions.
[2017-01-31 22:19] VITALS: BP 138/78
--- NOTE | 2017-02-04 08:11 | CR ---
Chest 1V Frontal HISTORY: Shortness of breath. COMPARISON: None FINDINGS: Slightly rotated film to the left. Overlying soft tissue attenuation at the left costophren ic angle. Cardiac size and pulmonary vessels normal. No focal infiltrates or effusions.
== END 2017-01-31 22:50 ==
LOC: JP.ED 19:13
DX: C71.6 Malignant neoplasm of cerebellum (principal); R40.2422 Glasgow coma scale score 9-12, at arrival to emergency department; K21.9 Gastro-esophageal reflux disease without esophagitis; M81.0 Age-related osteoporosis without current pathological fracture; G62.9 Polyneuropathy, unspecified; F41.9 Anxiety disorder, unspecified; F32.9 Major depressive disorder, single episode, unspecified; F17.210 Nicotine dependence, cigarettes, uncomplicated; Z90.49 Acquired absence of other specified parts of digestive tract; Z90.710 Acquired absence of both cervix and uterus; Z98.890 Other specified postprocedural states; Z86.718 Personal history of other venous thrombosis and embolism; Z87.440 Personal history of urinary (tract) infections; Z86.73 Personal history of transient ischemic attack (TIA), and cerebral infarction without residual deficits; Z79.899 Other long term (current) drug therapy; Z88.1 Allergy status to other antibiotic agents; Z88.5 Allergy status to narcotic agent
CPT/HCPCS: 36415; 51702; 70450; 71010; 80053; 81001; 83605; 83880; 84484; 85025; 85610; 86140; 86850; 86900; 86901; 86920; 86922; 87040; 93005; 96361; 96365; 96375; 99285; J1100; J2543; J7030; J7120